=== PATIENT | female | born 1950 | race Caucasian/White ===

== ENCOUNTER 2018-04-22 08:54 | Inpatient (IN) ==
[2018-04-15 11:12] LABS: Appearance,Urine CLEAR; Bilirubin,Urine NEG (NEG); Color,Urine YELLOW; Glucose,Urine (UA) NEGATIVE (NEG); Leukocyte Esterase,Urine NEG /uL (NEG); Protein,Urine NEG (NEG); Specific Gravity,Urine 1.013 (1.000-1.035); Urine Blood NEG mg/dL (<0.03); Urobilinogen,Urine NEG (NEG)
[2018-04-15 12:20] LABS: Blood Urea Nitrogen 11 mg/dl (8-23)
[2018-04-15 12:27] LABS: Basophils # (Auto) 0 K/mcL (0.0-0.3); Basophils % (Auto) 0.3 % (0.0-2.0); Eosinophils # (Auto) 0.1 K/mcL (0.0-0.7); Eosinophils % (Auto) 2.5 % (0.0-7.0); Granulocytes % (Auto) 56.6 % (38.0-78.0); Lymphocytes # (Auto) 1.6 K/mcL (1.5-4.8); Mean Cell Volume 107.8 fL (80.0-100.0); Monocytes # (Auto) 0.4 K/mcL (0.1-0.9); Monocytes % (Auto) 8.6 % (1.0-12.0); Platelet Count 246 K/mcL (140-440); RBC 3.76 M/mcL (4.00-5.20); Red Cell Distribution Width 14.2 % (11.5-14.5)
[~2018-04-22 08:54] MED LIST: 0.9 % SODIUM CHLORIDE 250 ML IV SCH; ceFAZolin 1 GM VIAL IV SCH
[2018-04-22] MEDS ORDERED: DESMOPRESSIN ACETATE 20 MCG in 0.9 % SODIUM CHLORIDE 50 ML IV ONE (11:00)
[2018-04-22] MEDS ORDERED: ePHEDrine 50 MG/ML AMPUL IV ONE (13:10)
[2018-04-22] MEDS ORDERED: LIDOCAINE HCL/PF 100 MG/5 ML SYRINGE IV ONE (13:10)
[2018-04-22] MEDS ORDERED: ONDANSETRON 4 MG/2 ML VIAL IV ONE (13:10)
[2018-04-22] MEDS ORDERED: PROPOFOL 200 MG/20 ML VIAL IV ONE (13:10)
[2018-04-22] MEDS ORDERED: DEXAMETHASONE 10 MG/ML VIAL IV ONE (13:10)
[2018-04-22] MEDS ORDERED: MIDAZOLAM 5 MG/5 ML VIAL IV ONE (13:10)
[2018-04-22] MEDS ORDERED: fentaNYL 250 MCG/5 ML VIAL IV ONE (13:10)
[2018-04-22] MEDS ORDERED: GENTAMICIN SULFATE 800 MG/20 ML VIAL IR ONE (13:33)
[2018-04-22] MEDS ORDERED: PROMETHAZINE 25 MG/ML VIAL IV PRN (14:28)
[2018-04-22] MEDS ORDERED: FLUMAZENIL 0.1 MG/ML ML IV PRN (14:28)
[2018-04-22] MEDS ORDERED: ACETAMINOPHEN 1,000 MG/100 ML BOTTLE IV ONE (14:28)
[2018-04-22] MEDS ORDERED: BUPIVACAINE 0.5% 50 ML VIAL IJ ONE (14:28)
[2018-04-22] MEDS ORDERED: ONDANSETRON 4 MG/2 ML VIAL IV PRN ×2 (14:28→14:35)
[2018-04-22] MEDS ORDERED: HYDROmorphone 2 MG/ML VIAL IV PRN (14:28)
[2018-04-22] MEDS ORDERED: diphenhydrAMINE 50 MG/ML VIAL IV PRN (14:28)
[2018-04-22] MEDS ORDERED: NALOXONE HCL 0.4 MG/ML VIAL IV PRN (14:28)
[2018-04-22] MEDS ORDERED: MEPERIDINE 25 MG/ML SYRINGE IV PRN (14:28)
[2018-04-22] MEDS ORDERED: IPRATROPIUM/ALBUTEROL 3 ML AMPUL.NEB NEB PRN (14:28)
[2018-04-22] MEDS ORDERED: LACTATED RINGERS 250 ML IV PRN (14:28)
[2018-04-22] MEDS ORDERED: BENZOCAINE/MENTHOL 1 LOZENGE PO PRN ×2 (14:28→14:35)
[2018-04-22] MEDS ORDERED: LACTATED RINGERS 1,000 ML IV SCH (14:30)
[2018-04-22] MEDS ORDERED: MAGNESIUM HYDROXIDE 30 ML ORAL.SUSP PO PRN (14:35)
[2018-04-22] MEDS ORDERED: FLEETS ADULT ENEMA PR PRN (14:35)
[2018-04-22] MEDS ORDERED: BISACODYL 10 MG SUPP.RECT PR PRN (14:35)
[2018-04-22] MEDS ORDERED: TRANEXAMIC ACID 1,000 MG/10 ML VIAL IV SCH (14:35)
[2018-04-22] MEDS ORDERED: POLYETHYLENE GLYCOL 3350 17 GM PACKET PO PRN (14:35)
[2018-04-22] MEDS ORDERED: MECLIZINE 25 MG TABLET PO PRN (14:39)
[2018-04-22] MEDS ORDERED: HYDROcodone/APAP 5/325MG TABLET PO PRN (14:39)
--- NOTE | 2018-04-22 14:42 | Brief Operative Note ---
Date of procedure: 04/22/18 Pre-op diagnosis: loose tibial component, left TKR Post-op diagnosis: same Procedure: revision tibial component Grafts/Implants: Yes (SNN tibia with stem) Anesthesia: GETA Complications: none Complications Description: 04/22/18 14:42 as above Surgeon: Estiven Rebolledo Infrastructure Security Architect: Harpreet Benitez Estimated blood loss (cc): 250 Tourniquet Time (Minutes): 0 Specimens Removed/Pathology: other (left tibial bone) Condition: stable Disposition: PACU
[2018-04-22] MEDS: fentaNYL 100 MCG/2 ML VIAL IV PRN ×3 (15:18→15:41)
[2018-04-22] MEDS ORDERED: PSEUDOEPHEDRINE 30 MG TABLET PO PRN (15:32)
--- NOTE | 2018-04-22 16:07 | XRay Report ---
HISTORY: Postop left knee replacement FINDINGS: There is a well-positioned left total knee prosthesis. There are periarticular soft tissue calcifications in the soft tissue calcifications anterior to the distal shaft of the femur, above the head of the fibula and in the suprapatellar recess. These calcifications were not present on the prior x-ray done in 2013. No fracture seen. IMPRESSION: Well-positioned left knee prosthesis Interpreted and Authenticated by: Narayan Rich 04/22/18
[2018-04-22] MEDS: 0.9 % SODIUM CHLORIDE 1,000 ML IV SCH (16:08)
[2018-04-22] MEDS: HYDROcodone/APAP 10/325MG TABLET PO PRN ×3 (16:19→22:33)
[2018-04-22] MEDS: GABAPENTIN 300 MG CAPSULE PO SCH ×2 (16:19→20:54)
[2018-04-22] MEDS: ceFAZolin 1 GM VIAL IV SCH (20:49)
[2018-04-22] MEDS: SIMVASTATIN 20 MG TABLET PO SCH (20:50)
[2018-04-22] MEDS: LACTOBACILLUS 1 CAPSULE PO SCH (20:50)
[2018-04-22] MEDS: SENNOSIDES 1 TABLET PO SCH (20:51)
[2018-04-22] MEDS: APIXABAN 5 MG TABLET PO SCH (20:51)
[2018-04-22] MEDS: traZODone HCL 100 MG TABLET PO SCH (20:54)
[2018-04-22] MEDS: DULoxetine 30 MG CAPSULE PO SCH (20:54)
[2018-04-22] MEDS: DOCUSATE SODIUM 100 MG CAPSULE PO SCH (20:54)
[2018-04-22] MEDS ORDERED: FAMOTIDINE 20 MG TABLET PO PRN (21:00)
[2018-04-22] MEDS ORDERED: DOCUSATE SODIUM 100 MG CAPSULE PO SCH (21:00)
[2018-04-22] MEDS ORDERED: ASPIRIN 325 MG ENTERIC COATED TABLET PO SCH (21:00)
[2018-04-22] MEDS: MODAFINIL 200 MG TABLET PO SCH (21:05)
[2018-04-22] MEDS: 0.9 % SODIUM CHLORIDE 10 ML SYRINGE IV SCH (22:26)
[2018-04-23] MEDS: 0.9 % SODIUM CHLORIDE 1,000 ML IV SCH ×3 (02:14→21:56)
[2018-04-23] MEDS: HYDROcodone/APAP 10/325MG TABLET PO PRN ×5 (04:00→21:50)
[2018-04-23] MEDS: ceFAZolin 1 GM VIAL IV SCH (05:00)
[2018-04-23] MEDS: 0.9 % SODIUM CHLORIDE 10 ML SYRINGE IV SCH ×3 (06:38→22:00)
[2018-04-23 07:04] LABS: Basophils # (Auto) 0 K/mcL (0.0-0.3); Basophils % (Auto) 0.3 % (0.0-2.0); Eosinophils # (Auto) 0 K/mcL (0.0-0.7); Eosinophils % (Auto) 0.7 % (0.0-7.0); Granulocytes % (Auto) 63.9 % (38.0-78.0); Lymphocytes # (Auto) 1.6 K/mcL (1.5-4.8); Lymphocytes % (Auto) 27.6 % (15.5-49.0); Mean Cell Volume 107.1 fL (80.0-100.0); Mean Corpuscular HGB Conc 32.8 g/dL (31.0-36.0); Monocytes # (Auto) 0.4 K/mcL (0.1-0.9); Monocytes % (Auto) 7.5 % (1.0-12.0); Platelet Count 181 K/mcL (140-440); RBC 2.82 M/mcL (4.00-5.20); Red Cell Distribution Width 13.6 % (11.5-14.5)
[2018-04-23] MEDS: LACTOBACILLUS 1 CAPSULE PO SCH ×2 (08:22→21:49)
[2018-04-23] MEDS: FISH OIL 1,000 MG CAPSULE PO SCH (08:22)
[2018-04-23] MEDS: DULoxetine 30 MG CAPSULE PO SCH ×2 (08:23→22:00)
[2018-04-23] MEDS: APIXABAN 5 MG TABLET PO SCH ×2 (08:23→21:54)
[2018-04-23] MEDS: GABAPENTIN 300 MG CAPSULE PO SCH ×3 (08:24→21:52)
[2018-04-23] MEDS: DOCUSATE SODIUM 100 MG CAPSULE PO SCH ×2 (08:24→21:51)
[2018-04-23] MEDS: VITAMIN D3 1,000 UNIT TABLET PO SCH (08:24)
[2018-04-23] MEDS: MODAFINIL 200 MG TABLET PO SCH ×3 (08:40→21:53)
[2018-04-23] MEDS ORDERED: PNEUMOCOCCAL 23-VAL P-SAC VAC 0.5 ML SYRINGE IM ONE (10:00)
--- NOTE | 2018-04-23 10:02 | Orthopedic Progress Note ---
Subjective Patient information: Note initiated : 04/23/18 at 10:00 am Service Date, if different from initiated Date: [] Patient: Janee Orozco 67 y/o F admitted on 04/22/18 for Left Knee Revision of Tibial Component with Liner . Chief Complaint: [] Principal diagnosis: l knee revision Objective Vital signs: Vital Signs Temp Pulse Resp BP BP Pulse Ox 04/23/18 07:06 98.3 F 18 85/43 92 04/23/18 04:00 98.4 F 89 16 91/54 91 04/22/18 23:10 98.1 F 104 H 16 99/57 91 04/22/18 19:12 97.3 F 93 H 16 117/70 93 04/22/18 18:04 98 F 75 16 105/68 99 04/22/18 17:01 98 F 68 18 109/71 94 04/22/18 16:46 71 16 104/64 98 04/22/18 16:31 70 16 108/63 04/22/18 16:16 97.3 F 73 106/62 95 04/22/18 16:01 96.9 F L 71 18 109/68 04/22/18 15:52 97.2 F 73 19 102/85 95 04/22/18 15:40 96.3 F L 72 15 104/61 98 04/22/18 15:30 96.5 F L 77 14 107/85 96 04/22/18 15:20 97.3 F 81 13 99/54 100 04/22/18 15:10 80 13 122/70 97 04/22/18 15:05 79 11 L 107/58 93 04/22/18 15:02 97.3 F 80 19 109/58 97 04/22/18 12:00 97.9 F 88 18 126/77 95 Intake and Output 04/22/18 04/23/18 04/23/18 21:59 05:59 13:59 Intake Total 2395 / 3545 1150 / 3545 360 / 360 Output Total 500 / 500 Balance 1895 / 3045 1150 / 3045 360 / 360 Intake: IV 155 / 1155 1000 / 1155 Sodium Chloride 0.9% 1,000 ml @ 1000 / 1000 100 mls/hr IV .Q10H [facility] Rx#: [id number] Oral 240 / 390 150 / 390 360 / 360 IV - Manual Only 1999 Output: Void Amount 250 / 250 Estimated Blood Loss 250 / 250 Other: Meal Dinner Breakfast Percent of Meal Consumed 100% 100% Feeding Ability Independent Urine Appearance Clear Urine Color Dark Yellow Urine Odor Normal # Voids 1 Weight 201 lb 8 oz Intake & Output: Intake & Output 04/22/18 04/23/18 04/23/18 21:59 05:59 13:59 Intake Total 2395 / 3545 1150 / 3545 360 / 360 Output Total 500 / 500 Balance 1895 / 3045 1150 / 3045 360 / 360 Weight 201 lb 8 oz Intake: IV 155 / 1155 1000 / 1155 Sodium Chloride 0.9% 1,000 ml @ 1000 / 1000 100 mls/hr IV .Q10H [facility] Rx#: [id number] Oral 240 / 390 150 / 390 360 / 360 IV - Manual Only 1999 Output: Void Amount 250 / 250 Estimated Blood Loss 250 / 250 Other: Meal Dinner Breakfast Percent of Meal Consumed 100% 100% Feeding Ability Independent Urine Appearance Clear Urine Color Dark Yellow Urine Odor Normal # Voids 1 Incision clean and dry: Yes Neurological exam IM: Yes neurovascular intact - Labs CBC & BMP: 04/23/18 05:25 04/15/18 09:55 Labs: 04/23/18 04/15/18 05:25 09:55 Hgb 9.9 L 13.4 Hct 30.2 L 40.6 Assessment and Plan (1) Status post revision of total replacement of left knee no complications. continue PT low dose eliquis- hx of bleeding problwma ND [facility]IR[facility] [employer] Status: Acute
--- NOTE | 2018-04-23 10:32 | Surgical Pathology Report ---
HISTOLOGY SPECIMEN MICROSCOPIC DIAGNOSIS BONE, LEFT TIBIA, BIOPSY: -- BONE AND MARROW WITH CHRONIC INFLAMMATION, FIBROSIS AND HEMORRHAGE. -- NO NEUTROPHILIC INFLAMMATION IDENTIFIED. (DMT:adj) CLINICAL HISTORY Left knee pain of internal hardware. GROSS DESCRIPTION Received in formalin labeled left tibia biopsy, is a pink-wong piece of tissue measuring 1 x 0.6 x 0.3 cm. Entirely submitted - one cassette, following light decalcification. (SCB:sln) Electronically Signed by: Miguel Castillo M.D.
--- NOTE | 2018-04-23 12:47 | Operative Note ---
DATE OF OPERATION: 04/22/2018 PREOPERATIVE DIAGNOSIS: Painful left total knee replacement. POSTOPERATIVE DIAGNOSIS: Painful left total knee replacement. OPERATION: Revision of the left tibial component with liner exchange. SURGEON: Estiven Rebolledo M.D. JAVA SYSTEMS ANALYST: Harpreet Benitez PA-C. ANESTHESIA: General. TOURNIQUET TIME: No tourniquet was used. ESTIMATED BLOOD LOSS: 250 mL. SUMMARY OF PROCEDURE: General anesthesia was attained. The left leg was prepped and draped. The patient's previous incision was reopened. This was taken down to the quadriceps and medial retinaculum. These were split longitudinally. The patella required a lateral release to salas. The components were exposed. The patella looked undamaged and intact, and the femur did not feel loose. Preoperative bone scan was suggestive of a loose tibial component. There was no evidence of infection clinically or preoperatively. The tibial component was completely released using an osteotome and then removed. Underneath there was no purulence. There was mild loss of bone onto the prosthetic component. The bone surfaces were debrided of bone using appropriate curets and then thoroughly irrigated. A biopsy was taken. I then reamed the bone. We did a new proximal resection approximately 1 mm above the superior area of the bone. We then did trials with a revision baseplate and a 12 cm stem. We got an excellent combination of stability with full range of motion with a 15 mm insert. We thoroughly cleansed the tibia and then used the CarboJet to get final blood off the bone. The components were then cemented in using cement throughout the stem and proximally as well. The knee was kept in full extension during hardening and excess cement was removed. This was checked before and after cementation. The quadriceps and medial retinaculum were closed with interrupted buried 0 FiberWire. A second layer of running locking Maxon was also placed. The subcutaneous tissue was closed with interrupted buried 2-0 Monocryl, and the skin was closed with candy. A sterile compressive dressing was applied. Sponge and needle count was correct. The patient tolerated the procedure well and was taken to the recovery room in stable condition. TJF:jet Job ID: [id number] Doc ID: [id number] Estiven Rebolledo MD
[2018-04-23] MEDS: SENNOSIDES 1 TABLET PO SCH (21:49)
[2018-04-23] MEDS: SIMVASTATIN 20 MG TABLET PO SCH (21:52)
[2018-04-23] MEDS: traZODone HCL 100 MG TABLET PO SCH (21:55)
[2018-04-24] MEDS: 0.9 % SODIUM CHLORIDE 1,000 ML IV SCH ×2 (05:59→17:35)
[2018-04-24] MEDS: 0.9 % SODIUM CHLORIDE 10 ML SYRINGE IV SCH ×3 (05:59→20:24)
[2018-04-24] MEDS: APIXABAN 5 MG TABLET PO SCH ×2 (08:24→20:19)
[2018-04-24] MEDS: HYDROcodone/APAP 10/325MG TABLET PO PRN ×4 (08:25→20:17)
[2018-04-24] MEDS: FISH OIL 1,000 MG CAPSULE PO SCH (08:26)
[2018-04-24] MEDS: LACTOBACILLUS 1 CAPSULE PO SCH ×2 (08:26→20:18)
[2018-04-24] MEDS: GABAPENTIN 300 MG CAPSULE PO SCH ×3 (08:26→20:19)
[2018-04-24] MEDS: DULoxetine 30 MG CAPSULE PO SCH ×2 (08:26→20:19)
[2018-04-24] MEDS: VITAMIN D3 1,000 UNIT TABLET PO SCH (08:26)
[2018-04-24] MEDS: DOCUSATE SODIUM 100 MG CAPSULE PO SCH ×2 (08:26→20:19)
[2018-04-24] MEDS: MODAFINIL 200 MG TABLET PO SCH ×2 (08:26→20:23)
--- NOTE | 2018-04-24 08:55 | Orthopedic Progress Note ---
Subjective Patient information: Note initiated : 04/24/18 at 8:54 am Service Date, if different from initiated Date: [] Patient: Janee Orozco 67 y/o F admitted on 04/22/18 for Left Knee Revision of Tibial Component with Liner . Chief Complaint: [] Principal diagnosis: l knee revision Interval history: doing better but slow to mobilize Objective Vital signs: Vital Signs Temp Pulse Pulse Resp BP Pulse Ox 04/24/18 07:17 98.3 F 98 H 14 109/71 92 04/24/18 05:44 98.5 F 98 H 18 95/61 93 04/23/18 23:10 99.8 F H 98 H 12 110/57 95 04/23/18 18:42 99.7 F H 102 H 16 107/59 91 04/23/18 15:20 98.1 F 20 94/54 92 04/23/18 11:07 97.8 F 18 97/59 93 Intake and Output 04/23/18 04/24/18 04/24/18 21:59 05:59 13:59 Intake Total 540 / 2540 400 / 2540 Output Total 250 / 250 Balance 290 / 2290 400 / 2290 Intake: Oral 540 / 1540 400 / 1540 Output: Void Amount 250 / 250 Other: Meal Dinner Percent of Meal Consumed 100% Feeding Ability Independent Urine Appearance Clear Urine Color Bright Yellow Urine Odor Normal # Voids 1 Weight 203 lb Intake & Output: Intake & Output 04/23/18 04/24/18 04/24/18 21:59 05:59 13:59 Intake Total 540 / 2540 400 / 2540 Output Total 250 / 250 Balance 290 / 2290 400 / 2290 Weight 203 lb Intake: Oral 540 / 1540 400 / 1540 Output: Void Amount 250 / 250 Other: Meal Dinner Percent of Meal Consumed 100% Feeding Ability Independent Urine Appearance Clear Urine Color Bright Yellow Urine Odor Normal # Voids 1 Incision: Yes healing Incision clean and dry: Yes Dressing: Yes clean, Yes dry, Yes intact Weight bearing status: full Neurological exam IM: Yes alert, Yes oriented X3, Yes motor sensory intact Extremities exam IM: No calf tenderness, Yes Foot pink and warm, Yes neurovascular intact - Labs CBC & BMP: 04/23/18 05:25 04/15/18 09:55 Labs: 04/23/18 04/15/18 05:25 09:55 Hgb 9.9 L 13.4 Hct 30.2 L 40.6 Assessment and Plan (1) Status post revision of total replacement of left knee s.p revision tka wbat pain control dvt prophylaxis home vs rehab thu or thursday Status: Acute
[2018-04-24] MEDS: SIMVASTATIN 20 MG TABLET PO SCH (20:19)
[2018-04-24] MEDS: traZODone HCL 100 MG TABLET PO SCH (20:19)
[2018-04-24] MEDS: SENNOSIDES 1 TABLET PO SCH (20:19)
[2018-04-25] MEDS: 0.9 % SODIUM CHLORIDE 1,000 ML IV SCH (06:42)
[2018-04-25] MEDS: 0.9 % SODIUM CHLORIDE 10 ML SYRINGE IV SCH (06:43)
[2018-04-25] MEDS: DULoxetine 30 MG CAPSULE PO SCH (08:21)
[2018-04-25] MEDS: MODAFINIL 200 MG TABLET PO SCH (08:21)
[2018-04-25] MEDS: FISH OIL 1,000 MG CAPSULE PO SCH (08:21)
[2018-04-25] MEDS: LACTOBACILLUS 1 CAPSULE PO SCH (08:21)
[2018-04-25] MEDS: HYDROcodone/APAP 10/325MG TABLET PO PRN ×2 (08:21→11:57)
[2018-04-25] MEDS: GABAPENTIN 300 MG CAPSULE PO SCH (08:21)
[2018-04-25] MEDS: DOCUSATE SODIUM 100 MG CAPSULE PO SCH (08:22)
[2018-04-25] MEDS: APIXABAN 5 MG TABLET PO SCH (08:22)
[2018-04-25] MEDS: VITAMIN D3 1,000 UNIT TABLET PO SCH (08:22)
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
== END 2018-04-25 12:24 | disposition home or self-care (01) | DRG 467 ==
LOC: MEDSUR 08:54
PROVIDERS: ADMIT Orthopaedic Surgery Foot and Ankle Surgery; ATTEND Orthopaedic Surgery Foot and Ankle Surgery

== ENCOUNTER 2019-02-17 06:54 | Inpatient (IN) ==
[2019-02-09 20:30] LABS: Prothrombin Time 13.2 sec (11.9-14.5)
[2019-02-09 20:40] LABS: Basophils # (Auto) 0 K/mcL (0.0-0.3); Basophils % (Auto) 0.3 % (0.0-2.0); Eosinophils # (Auto) 0.1 K/mcL (0.0-0.7); Eosinophils % (Auto) 1.9 % (0.0-7.0); Granulocytes % (Auto) 66.9 % (38.0-78.0); Hematocrit 39.2 % (36.0-48.0); Hemoglobin 12.7 g/dL (12.0-15.0); Lymphocytes # (Auto) 1.1 K/mcL (1.5-4.8); Lymphocytes % (Auto) 23.4 % (15.5-49.0); Mean Cell Volume 109.1 fL (80.0-100.0); Mean Corpuscular HGB Conc 32.4 g/dL (31.0-36.0); Monocytes # (Auto) 0.3 K/mcL (0.1-0.9); Monocytes % (Auto) 7.5 % (1.0-12.0); Platelet Count 235 K/mcL (140-440); RBC 3.59 M/mcL (4.00-5.20); Red Cell Distribution Width 14.3 % (11.5-14.5); WBC 4.5 K/mcL (4.5-11.0)
[2019-02-09 20:43] LABS: Blood Urea Nitrogen 17 mg/dl (8-23); Calcium 9.3 mg/dl (8.6-10.4); Carbon Dioxide 29 mmol/L (22-30); Chloride 98 mmol/L (96-108); Glomerular Filtration Rate 76; Glucose 112 mg/dL (70-105)
[~2019-02-17 06:54] MED LIST changes: -0.9 % SODIUM CHLORIDE 250 ML IV SCH; +0.9 % SODIUM CHLORIDE 9 ML, KETOROLAC 30 MG, ROPIVACAINE HCL/PF 49.5 ML, EPINEPHrine 0.... IJ SCH; +IPRATROPIUM/ALBUTEROL 3 ML AMPUL.NEB NEB PRN; +SCOPOLAMINE 1 PATCH PATCH TOPICAL PRN; -ceFAZolin 1 GM VIAL IV SCH; +ceFAZolin 2 GM in DEXTROSE 5% IN WATER 50 ML IV SCH
[2019-02-17 10:13] LABS: Appearance,Urine CLEAR; Bacteria,Urine 0 /hpf (0); Bilirubin,Urine NEG (NEG); Color,Urine YELLOW; Culture Indicated,Urine YES; Glucose,Urine (UA) NEGATIVE (NEG); Ketones,Urine 5/TR mg/dL (NEG); Leukocyte Esterase,Urine 75 /uL (NEG); Mucus,Urine FEW /hpf (0); Nitrate,Urine NEG (NEG); Protein,Urine 30 mg/dL (NEG); Specific Gravity,Urine 1.026 (1.000-1.035); Urine Blood NEG mg/dL (<0.03); Urine Hyaline Cast 34 /lpf (0-2); Urine RBC 5 /hpf (0-1); Urine Squamous Epithelial Cell < 1 /hpf (0-4); Urine Transitional Epi Cells 1 /hpf (0-2); Urine WBC 53 /hpf (0-4); Urobilinogen,Urine NEG (NEG)
[2019-02-17] MEDS ORDERED: ePHEDrine 50 MG/ML AMPUL IV ONE (12:05)
[2019-02-17] MEDS ORDERED: ROPIVACAINE HCL/PF 20 ML VIAL IJ ONE (12:05)
[2019-02-17] MEDS ORDERED: DEXAMETHASONE 10 MG/ML VIAL IV ONE (12:05)
[2019-02-17] MEDS ORDERED: ONDANSETRON 4 MG/2 ML VIAL IV ONE (12:05)
[2019-02-17] MEDS ORDERED: TRANEXAMIC ACID 1,000 MG/10 ML VIAL IV ONE ×2 (12:05→13:51)
[2019-02-17] MEDS ORDERED: GLYCOPYRROLATE 0.2 MG/ML VIAL IV ONE (12:05)
[2019-02-17] MEDS ORDERED: KETAMINE 100 MG/ML ML IV ONE (12:05)
[2019-02-17] MEDS ORDERED: PROPOFOL 200 MG/20 ML VIAL IV ONE (12:05)
[2019-02-17] MEDS ORDERED: MIDAZOLAM 5 MG/5 ML VIAL IV ONE (12:05)
[2019-02-17] MEDS ORDERED: LIDOCAINE HCL/PF 100 MG/5 ML SYRINGE IV ONE (12:05)
[2019-02-17] MEDS ORDERED: ESMOLOL 100 MG/10 ML VIAL IV ONE (12:05)
[2019-02-17] MEDS ORDERED: fentaNYL 250 MCG/5 ML VIAL IV ONE (12:05)
[2019-02-17] MEDS ORDERED: GENTAMICIN SULFATE 800 MG/20 ML VIAL IR ONE (12:37)
[2019-02-17] MEDS ORDERED: fentaNYL 100 MCG/2 ML VIAL IV PRN (13:28)
[2019-02-17] MEDS ORDERED: HYDROmorphone 2 MG/ML VIAL IV PRN (13:28)
[2019-02-17] MEDS ORDERED: ATROPINE SULFATE 0.4 MG/ML VIAL IV PRN (13:28)
[2019-02-17] MEDS ORDERED: PROMETHAZINE 25 MG/ML VIAL IV PRN (13:28)
[2019-02-17] MEDS ORDERED: MEPERIDINE 25 MG/ML SYRINGE IV PRN (13:28)
[2019-02-17] MEDS ORDERED: ePHEDrine 50 MG/ML AMPUL IV PRN (13:28)
[2019-02-17] MEDS ORDERED: NALOXONE HCL 0.4 MG/ML VIAL IV PRN (13:28)
[2019-02-17] MEDS ORDERED: diphenhydrAMINE 50 MG/ML VIAL IV PRN (13:28)
[2019-02-17] MEDS ORDERED: METHOCARBAMOL 1,000 MG/10 ML VIAL IV PRN (13:28)
[2019-02-17] MEDS ORDERED: FLUMAZENIL 0.1 MG/ML ML IV PRN (13:28)
[2019-02-17] MEDS ORDERED: ONDANSETRON 4 MG/2 ML VIAL IV PRN ×2 (13:28→13:51)
[2019-02-17] MEDS ORDERED: ACETAMINOPHEN 1,000 MG/100 ML BOTTLE IV ONE (13:28)
[2019-02-17] MEDS ORDERED: IPRATROPIUM/ALBUTEROL 3 ML AMPUL.NEB NEB PRN (13:28)
[2019-02-17] MEDS ORDERED: LACTATED RINGERS 1,000 ML IV SCH (13:30)
[2019-02-17] MEDS ORDERED: MAGNESIUM HYDROXIDE 30 ML ORAL.SUSP PO PRN (13:51)
[2019-02-17] MEDS ORDERED: BENZOCAINE/MENTHOL 1 LOZENGE PO PRN (13:51)
[2019-02-17] MEDS ORDERED: POLYETHYLENE GLYCOL 3350 17 GM PACKET PO PRN (13:51)
[2019-02-17] MEDS ORDERED: BISACODYL 10 MG SUPP.RECT PR PRN (13:51)
[2019-02-17] MEDS ORDERED: FAMOTIDINE 20 MG TABLET PO PRN (13:55)
[2019-02-17] MEDS ORDERED: PSEUDOEPHEDRINE HCL PO PRN (13:55)
[2019-02-17] MEDS ORDERED: BUTALBITAL PO PRN (13:55)
[2019-02-17] MEDS ORDERED: CAFFEIN PO PRN (13:55)
[2019-02-17] MEDS ORDERED: CODEINE PO PRN (13:55)
[2019-02-17] MEDS ORDERED: MECLIZINE 25 MG TABLET PO PRN (13:55)
[2019-02-17] MEDS ORDERED: tiZANidine 4 MG TABLET PO PRN (13:55)
[2019-02-17] MEDS ORDERED: ASA PO PRN (13:55)
--- NOTE | 2019-02-17 14:00 | Brief Operative Note ---
Date of procedure: 02/17/19 Pre-op diagnosis: djd right knee Post-op diagnosis: same Procedure: r TKR Grafts/Implants: Yes (Triathlon knee- 4 femur, 4 tibia, 9 mm insert, 32 mm patella) Anesthesia: GETA Complications: none Surgeon: Estiven Rebolledo Payroll Assistant: Harpreet Benitez Estimated blood loss (cc): 100 Tourniquet Time (Minutes): 67 Specimens Removed/Pathology: none sent Condition: stable Disposition: PACU
--- NOTE | 2019-02-17 15:09 | XRay Report ---
CLINICAL INFORMATION: Status post right knee replacement TECHNIQUE: AP, lateral, patellar views of the right knee COMPARISON: None. FINDINGS: Status post right total knee arthroplasty. Femoral and tibial components are in anatomic positions. There is postsurgical soft tissue and intra-articular gas IMPRESSION: Status post right total knee replacement Interpreted and Authenticated by: Marco Doherty 02/17/19
[2019-02-17] MEDS: 0.9 % SODIUM CHLORIDE 1,000 ML IV SCH (15:59)
[2019-02-17] MEDS: 0.9 % SODIUM CHLORIDE 10 ML SYRINGE IV SCH ×2 (17:13→20:09)
[2019-02-17] MEDS: GABAPENTIN 300 MG CAPSULE PO SCH ×2 (17:33→20:07)
[2019-02-17] MEDS: HYDROcodone/APAP 10/325MG TABLET PO PRN ×2 (17:41→22:45)
[2019-02-17] MEDS: ceFAZolin 1 GM VIAL IV SCH (18:34)
[2019-02-17] MEDS: DOCUSATE SODIUM 100 MG CAPSULE PO SCH ×2 (20:00→20:08)
[2019-02-17] MEDS: DULoxetine 30 MG CAPSULE PO SCH (20:07)
[2019-02-17] MEDS: SIMVASTATIN 20 MG TABLET PO SCH (20:07)
[2019-02-17] MEDS: APIXABAN 5 MG TABLET PO SCH (20:07)
[2019-02-17] MEDS: traZODone HCL 50 MG TABLET PO SCH (20:08)
[2019-02-17] MEDS: SENNOSIDES 1 TABLET PO SCH (20:08)
[2019-02-17] MEDS: MODAFINIL 200 MG TABLET PO SCH (20:09)
[2019-02-17] MEDS: DIAZEPAM 10 MG TABLET PO PRN (20:17)
[2019-02-18] MEDS: HYDROcodone/APAP 10/325MG TABLET PO PRN ×4 (02:34→19:05)
[2019-02-18] MEDS: ceFAZolin 1 GM VIAL IV SCH (03:01)
[2019-02-18] MEDS: 0.9 % SODIUM CHLORIDE 1,000 ML IV SCH ×2 (05:20→17:33)
[2019-02-18] MEDS: 0.9 % SODIUM CHLORIDE 10 ML SYRINGE IV SCH ×3 (05:25→22:14)
[2019-02-18 05:31] LABS: Hematocrit 30.7 % (36.0-48.0)
--- NOTE | 2019-02-18 07:24 | Orthopedic Progress Note ---
Subjective Patient information: Note initiated : 02/18/19 at 7:21 am Service Date, if different from initiated Date: [] Patient: Janee Orozco 68 y/o F admitted on 02/17/19 for Right Total Knee Arthroplasty Osmar. Chief Complaint: [] Principal diagnosis: s/p right total knee arthoplasty Interval history: Patient is doing well today. Her pain is tolerated. She has participated in PT, Denies any SOB, BRAUN, Nausea, Vomiting, or any other acute symptoms. Objective Vital signs: Vital Signs Temp Pulse Resp BP BP Pulse Ox 02/18/19 03:09 97.7 F 93 H 20 107/66 94 02/18/19 00:00 98.8 F 83 20 108/71 92 02/17/19 20:00 97.6 F 112 H 18 130/74 95 02/17/19 19:45 95 02/17/19 16:28 110 H 137/83 95 02/17/19 15:57 103 H 135/88 95 02/17/19 15:43 105 H 140/84 96 02/17/19 15:27 110 H 151/92 93 02/17/19 15:13 109 H 138/84 95 02/17/19 14:57 110 H 128/76 95 02/17/19 14:45 97.9 F 114 H 18 146/79 93 02/17/19 14:30 98.2 F 111 H 13 124/81 93 02/17/19 14:25 114 H 14 134/75 96 02/17/19 14:20 118 H 20 135/80 98 02/17/19 14:15 116 H 21 130/91 95 02/17/19 14:11 97.6 F 100 H 18 145/71 100 Intake and Output 02/17/19 02/18/19 02/18/19 21:59 05:59 13:59 Intake Total 2140 1570 Output Total 100 200 Balance 2040 1370 Intake: IV 100 1000 Sodium Chloride 0.9% 1,000 ml @ 1000 75 mls/hr IV .[id number] [facility] Rx#: [id number] Oral 240 570 IV - Manual Only 1800 Output: Void Amount 50 200 Estimated Blood Loss 50 Other: Meal Dinner Percent of Meal Consumed 90 Urine Appearance Clear Clear Urine Color Dark Yellow Dark Yellow Weight 183 lb Intake & Output: Intake & Output 02/17/19 02/18/19 02/18/19 21:59 05:59 13:59 Intake Total 2140 1570 Output Total 100 200 Balance 2039 1370 Weight 183 lb Intake: IV 100 1000 Sodium Chloride 0.9% 1,000 ml @ 1000 75 mls/hr IV .[id number] [facility] Rx#: [id number] Oral 240 570 IV - Manual Only 1800 Output: Void Amount 50 200 Estimated Blood Loss 50 Other: Meal Dinner Percent of Meal Consumed 90 Urine Appearance Clear Clear Urine Color Dark Yellow Dark Yellow Incision: Yes healing Dressing: Yes clean, Yes dry, Yes intact Weight bearing status: full Neurological exam IM: Yes neurovascular intact Extremities exam IM: No calf tenderness, Yes normal inspection, Yes Foot pink and warm, Yes neurovascular intact - Labs CBC & BMP: 02/18/19 04:20 02/09/19 14:59 Labs: Orthopedic Labs 02/09/19 14:59 PT 13.2 INR 1.0 02/18/19 02/09/19 04:20 14:59 Hgb 10.0 L 12.7 Hct 30.7 L 39.2 Assessment and Plan (1) Status post total right knee replacement 1. Continue PT 2. Begin to taper IV pain meds 3. Plan for discharge to SNF Status: Acute
--- NOTE | 2019-02-18 08:06 | Operative Note ---
DATE OF OPERATION: 02/17/2019 PREOPERATIVE DIAGNOSIS: Right knee arthritis. POSTOPERATIVE DIAGNOSIS: Right knee arthritis. OPERATION: Right Osmar knee replacement. SURGEON: Estiven Rebolledo MD INTERACTIVE GRAPHIC DESIGNER: Harpreet Benitez PA-C. This provider's expertise and technical skill were required throughout the case. The PA assisted with preoperative coordination, intraoperative retraction, wound closure, dressing and splint application, as well as postoperative documentation and care coordination. ANESTHESIA: General done by Kelly Ratliff CRNA. TOURNIQUET TIME: 67 minutes. ESTIMATED BLOOD LOSS: 100 mL SUMMARY OF PROCEDURE: General anesthesia was attained. The right leg was prepped and draped. A thigh-level tourniquet was put up. Two stab incisions were made in the femur and two in the tibia. The pins were placed for the arrays for the Osmar system. The arrays were then placed and screwed in. A midline incision was made from the quadriceps to the tibial tubercle. This was taken down sharply to the VMO and the medial retinaculum. A mid vastus approach was used. The vastus medialis was split for about an inch as was the quadriceps and then the medial retinaculum split throughout. The exposure was completed by releasing and resecting the meniscus and the ACL. The medial and lateral malleoli were located for the Osmar system. The hip center was located by counter clockwise motion of the leg. Flexion, extension balancing was then accomplished to give equal flexion and extension gaps. No releases were needed. Forty anatomic landmarks were located on the femur and then 40 on the tibia using the registration of the Osmar. The bone cuts were then made using the robotic arm. The bone was then removed. The external rotation of the size 4 tibial tray was then adjusted using the Osmar system. The tibial trial was then used to broach and ream the tibia. Trials were then done of a 4 tibia, a 4 femur with a 9 mm insert and we got excellent motion and stability throughout the range of motion medially and laterally. The patella was everted. A measured resection was done bringing the patellar height down from 23 to 14 mm. The patella sized to a 32. This was a 10 mm correction. The bone surfaces were irrigated throughout. The knee was injected with multimodal injection per protocol. After irrigation and drying the bone surfaces the components were cemented in. The cement was cured with the knee at full extension. Excess cement was removed. The tourniquet was let down. All bleeding points were coagulated. The closure was then done with two running sutures of Stratafix, one proximal and one distal. The subcutaneous tissue was closed with interrupted buried 2-0 Monocryl. The skin was closed with Dermabond. A sterile compressive dressing was applied. The sponge and needle count was correct. The patient tolerated the procedure well and was taken to the recovery room in stable condition. TJF:malena Job ID: [id number] Doc ID: [id number] Estiven Rebolledo MD
[2019-02-18] MEDS: GABAPENTIN 300 MG CAPSULE PO SCH ×3 (08:48→21:43)
[2019-02-18] MEDS: APIXABAN 5 MG TABLET PO SCH ×2 (08:48→21:42)
[2019-02-18] MEDS: SULFAMETHOXAZOLE/TRIMETHOPRIM 1 TABLET PO SCH ×2 (08:48→21:42)
[2019-02-18] MEDS: DULoxetine 30 MG CAPSULE PO SCH ×2 (08:49→21:42)
[2019-02-18] MEDS: DOCUSATE SODIUM 100 MG CAPSULE PO SCH ×4 (08:50→22:14)
[2019-02-18] MEDS: VITAMIN D3 1,000 UNIT TABLET PO SCH (08:50)
[2019-02-18] MEDS: MODAFINIL 200 MG TABLET PO SCH ×2 (08:57→22:14)
[2019-02-18] MEDS: DIAZEPAM 10 MG TABLET PO PRN (08:57)
[2019-02-18] MEDS: FISH OIL 1,000 MG CAPSULE PO SCH (08:58)
[2019-02-18] MEDS: CYANOCOBALAMIN (VITAMIN B-12) 500 MCG TABLET PO SCH (08:59)
[2019-02-18] MEDS ORDERED: FLU VACC QS2019-20(6MOS UP)/PF 60 MCG/0.5 ML SYRINGE IM ONE (10:00)
[2019-02-18] MEDS: SENNOSIDES 1 TABLET PO SCH (21:42)
[2019-02-18] MEDS: traZODone HCL 50 MG TABLET PO SCH (21:43)
[2019-02-18] MEDS: SIMVASTATIN 20 MG TABLET PO SCH (21:43)
[2019-02-19] MEDS: 0.9 % SODIUM CHLORIDE 10 ML SYRINGE IV SCH ×3 (05:07→21:23)
[2019-02-19 06:28] LABS: Hemoglobin 9.7 g/dL (12.0-15.0)
[2019-02-19] MEDS: DOCUSATE SODIUM 100 MG CAPSULE PO SCH ×4 (08:23→21:31)
[2019-02-19] MEDS: MODAFINIL 200 MG TABLET PO SCH ×2 (08:23→21:23)
[2019-02-19] MEDS: FISH OIL 1,000 MG CAPSULE PO SCH (08:23)
[2019-02-19] MEDS: SULFAMETHOXAZOLE/TRIMETHOPRIM 1 TABLET PO SCH ×2 (08:23→21:22)
[2019-02-19] MEDS: DULoxetine 30 MG CAPSULE PO SCH ×2 (08:24→21:23)
[2019-02-19] MEDS: VITAMIN D3 1,000 UNIT TABLET PO SCH (08:24)
[2019-02-19] MEDS: APIXABAN 5 MG TABLET PO SCH ×2 (08:24→21:23)
[2019-02-19] MEDS: GABAPENTIN 300 MG CAPSULE PO SCH ×3 (08:24→21:23)
--- NOTE | 2019-02-19 08:24 | Orthopedic Progress Note ---
Subjective Patient information: Note initiated : 02/19/19 at 8:23 am Service Date, if different from initiated Date: [] Patient: Janee Orozco 68 y/o F admitted on 02/17/19 for Right Total Knee Arthroplasty Osmar. Chief Complaint: [] Principal diagnosis: s/p right total knee arthoplasty Objective Vital signs: Vital Signs Temp Pulse Resp BP Pulse Ox 02/19/19 07:25 99.8 F H 90 20 103/59 92 02/18/19 23:25 98.3 F 106 H 14 109/62 90 02/18/19 18:43 98.8 F 102 H 14 111/66 96 02/18/19 18:25 95 02/18/19 16:00 100.3 F H 102 H 22 168/67 90 02/18/19 11:54 99.3 F H 20 107/60 92 Intake and Output 02/18/19 02/19/19 02/19/19 21:59 05:59 13:59 Intake Total 240 Output Total 100 201 Balance 140 -201 Intake: Oral 240 Output: Void Amount 100 200 # of times incontinent of urine 1 Other: Meal Lunch Percent of Meal Consumed 100% Feeding Ability Independent Urine Appearance Clear Urine Color Bright Yellow Urine Odor Normal # Voids 1 Weight 185 lb Intake & Output: Intake & Output 02/18/19 02/19/19 02/19/19 21:59 05:59 13:59 Intake Total 240 Output Total 100 201 Balance 140 -201 Weight 185 lb Intake: Oral 240 Output: Void Amount 100 200 # of times incontinent of urine 1 Other: Meal Lunch Percent of Meal Consumed 100% Feeding Ability Independent Urine Appearance Clear Urine Color Bright Yellow Urine Odor Normal # Voids 1 Incision: Yes healing, Yes clean and dry Incision clean and dry: Yes Dressing: Yes clean Weight bearing status: full Neurological exam IM: Yes neurovascular intact Extremities exam IM: Yes Foot pink and warm - Diagnostic Results Knee x-ray: image reviewed (well positioned TKR, no complications) - Labs CBC & BMP: 02/19/19 04:31 02/09/19 14:59 Labs: Orthopedic Labs 02/09/19 14:59 PT 13.2 INR 1.0 02/19/19 02/18/19 02/09/19 04:31 04:20 14:59 Hgb 9.7 L 10.0 L 12.7 Hct 30.0 L 30.7 L 39.2
[2019-02-19] MEDS: CYANOCOBALAMIN (VITAMIN B-12) 500 MCG TABLET PO SCH (08:25)
[2019-02-19] MEDS: HYDROCODONE/APAP 7.5/325MG TABLET PO PRN ×4 (08:46→21:31)
[2019-02-19] MEDS: 0.9 % SODIUM CHLORIDE 1,000 ML IV SCH (09:35)
[2019-02-19] MEDS: traZODone HCL 50 MG TABLET PO SCH (21:23)
[2019-02-19] MEDS: SENNOSIDES 1 TABLET PO SCH (21:23)
[2019-02-19] MEDS: SIMVASTATIN 20 MG TABLET PO SCH (21:23)
[2019-02-20] MEDS: HYDROCODONE/APAP 7.5/325MG TABLET PO PRN ×2 (03:21→08:08)
[2019-02-20] MEDS: 0.9 % SODIUM CHLORIDE 10 ML SYRINGE IV SCH (06:04)
--- NOTE | 2019-02-20 07:13 | Orthopedic Progress Note ---
Subjective Patient information: Note initiated : 02/20/19 at 7:10 am Service Date, if different from initiated Date: [] Patient: Janee Orozco 68 y/o F admitted on 02/17/19 for Right Total Knee Arthroplasty Osmar. Chief Complaint: [S/p right TKA] Patient is doing well and has no particular complaints today. She denies any SOA, chest pain, or calf tenderness. Principal diagnosis: s/p right total knee arthoplasty Objective Vital signs: Vital Signs Temp Pulse Resp BP Pulse Ox 02/20/19 04:00 98.2 F 84 16 99/63 90 02/20/19 00:00 97.9 F 89 18 127/70 90 02/19/19 20:00 98.1 F 98 H 18 102/71 91 02/19/19 19:25 93 02/19/19 15:16 98.6 F 85 18 101/67 93 02/19/19 12:30 99 F 101 H 18 113/70 92 Intake and Output 02/19/19 02/20/19 02/20/19 22:59 05:59 13:59 Intake Total Output Total Balance Intake: Oral Output: Void Amount Other: Meal Percent of Meal Consumed Feeding Ability Urine Appearance Urine Color Weight Intake & Output: Intake & Output 02/19/19 02/20/19 02/20/19 22:59 05:59 13:59 Intake Total Output Total Balance Weight Intake: Oral Output: Void Amount Other: Meal Percent of Meal Consumed Feeding Ability Urine Appearance Urine Color Incision: Yes healing, Yes clean and dry Incision clean and dry: Yes Dressing: Yes clean, Yes dry, Yes intact Weight bearing status: full Neurological exam IM: Yes alert, Yes oriented X3, Yes motor sensory intact, Yes neurovascular intact Extremities exam IM: Yes calf tenderness (negative bilaterally), Yes Cra's sign (negative), Yes Foot pink and warm, Yes neurovascular intact - Labs CBC & BMP: 02/19/19 04:31 02/09/19 14:59 Labs: Orthopedic Labs 02/09/19 14:59 PT 13.2 INR 1.0 02/19/19 02/18/19 02/09/19 04:31 04:20 14:59 Hgb 9.7 L 10.0 L 12.7 Hct 30.0 L 30.7 L 39.2 Assessment and Plan (1) Status post total right knee replacement Discharge to SNF today. Verbal discharge instructions provided. Status: Acute
[2019-02-20] MEDS: VITAMIN D3 1,000 UNIT TABLET PO SCH (08:08)
[2019-02-20] MEDS: APIXABAN 5 MG TABLET PO SCH (08:08)
[2019-02-20] MEDS: CYANOCOBALAMIN (VITAMIN B-12) 500 MCG TABLET PO SCH (08:08)
[2019-02-20] MEDS: MODAFINIL 200 MG TABLET PO SCH (08:08)
[2019-02-20] MEDS: FISH OIL 1,000 MG CAPSULE PO SCH (08:08)
[2019-02-20] MEDS: GABAPENTIN 300 MG CAPSULE PO SCH (08:08)
[2019-02-20] MEDS: DOCUSATE SODIUM 100 MG CAPSULE PO SCH ×2 (08:09)
[2019-02-20] MEDS: SULFAMETHOXAZOLE/TRIMETHOPRIM 1 TABLET PO SCH (08:09)
[2019-02-20] MEDS: DULoxetine 30 MG CAPSULE PO SCH (08:10)
--- NOTE | 2019-03-10 07:43 | Discharge Summary ---
DATE OF ADMISSION: 02/17/2019 DATE OF DISCHARGE: 02/20/2019 PREOPERATIVE DIAGNOSIS: Right knee arthritis. POSTOPERATIVE DIAGNOSIS: Right knee arthritis. PROCEDURE: Right total knee arthroplasty with Osmar robot. HOSPITAL COURSE: The patient was admitted after surgery for physical therapy and pain control. She stayed for a total of 3 days and was discharged to a fdc facility. MEDICATIONS: The patient will be discharged on hydrocodone for pain and aspirin for DVT prophylaxis for 2 weeks. FOLLOWUP: [facility] in 2 weeks. KT:jet Job ID: [id number] Doc ID: [id number] Harpreet Benitez PA-C
== END 2019-02-20 10:05 | DRG 470 ==
LOC: MEDSUR 06:54
PROVIDERS: ADMIT Orthopaedic Surgery Foot and Ankle Surgery; ATTEND Orthopaedic Surgery Foot and Ankle Surgery

== ENCOUNTER 2019-06-14 21:31 | Inpatient (IN) ==
[2019-06-14] MEDS ORDERED: IOPAMIDOL 100 ML BOTTLE IV ONE (21:32)
[2019-06-14] MEDS ORDERED: LACTATED RINGERS 1,000 ML IV ONE (22:02)
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
[2019-06-14 22:05] LABS: POC Blood Urea Nitrogen 17 mg/dl (8-23); POC CO2 33 mmol/L (22-30); POC Calcium, Ionized 1.12 mmol/L (1.16-1.32); POC Chloride 99 mmol/L (96-108); POC Creatinine 0.8 mg/dl (0.6-1.1); POC Glucose, Random 129 mg/dL (70-105); POC Potassium 4.2 mmol/L (3.3-5.1); POC Sodium 139 mmol/L (133-145)
[2019-06-14 22:33] LABS: Hematocrit 32.3 % (34.1-44.9); Hemoglobin 10.1 g/dL (11.2-15.7); Mean Cell Volume 109.1 fL (80.0-100.0); Mean Corpuscular HGB Conc 31.3 g/dL (31.0-36.0); Mean Platelet Volume 8.3 fL (7.4-10.4); Platelet Count 172 K/mcL (140-440); RBC 2.96 M/mcL (3.59-5.38); Red Cell Distribution Width 14.4 % (11.5-14.5)
[2019-06-14 22:47] LABS: Alcohol, Blood < 10.0 mg/dL (<10); Alcohol,Blood < 0.010 gm/dl (<0.010)
[2019-06-14] MEDS ORDERED: 0.9 % SODIUM CHLORIDE 1,000 ML IV ONE (22:51)
[2019-06-14 22:53] LABS: ALT/SGPT 10 U/l (0-40); AST/SGOT 17 U/l (0-37); Albumin 3.5 gm/dL (3.2-5.2); Albumin/Globulin Ratio 1.5 (1.0-2.3); Alkaline Phosphatase 76 U/L (39-117); Bilirubin,Total 0.2 mg/dL (0.0-1.0); Blood Urea Nitrogen 16 mg/dl (8-23); Calcium 8.8 mg/dl (8.6-10.4); Carbon Dioxide 30 mmol/L (22-30); Chloride 101 mmol/L (96-108); Globulin 2.3 gm/dL (2.2-3.7); Glomerular Filtration Rate 76; Glucose 130 mg/dL (70-105)
[2019-06-14 22:56] LABS: Band Neutrophils % 1 % (0-10); Eosinophils % (Manual) 2 % (0-7); Lymphocytes % 18 % (15-49); Monocytes % (Manual) 13 % (1-12); Platelet Estimate NORMAL (NORMAL); RBC Morphology NORMAL (NORMAL); Reactive Lymphocytes 2 % (0-2); Segmented Neutrophils % 64 % (38-78)
[2019-06-15 00:49] LABS: Appearance,Urine CLEAR; Bacteria,Urine 0 /hpf (0); Bilirubin,Urine NEG (NEG); Color,Urine YELLOW; Culture Indicated,Urine NO; Glucose,Urine (UA) NEGATIVE (NEG); Ketones,Urine 5/TR mg/dL (NEG); Leukocyte Esterase,Urine NEG /uL (NEG); Mucus,Urine MANY /hpf (0); Nitrate,Urine NEG (NEG); Protein,Urine NEG (NEG); Specific Gravity,Urine 1.026 (1.000-1.035); Urine Blood NEG mg/dL (<0.03); Urine Hyaline Cast 14 /lpf (0-2); Urine RBC 3 /hpf (0-1); Urine Squamous Epithelial Cell 0 /hpf (0-4); Urine Transitional Epi Cells < 1 /hpf (0-2); Urine WBC 3 /hpf (0-4); Urobilinogen,Urine NEG (NEG)
--- NOTE | 2019-06-15 02:28 | Cat Scan Report ---
CLINICAL INFORMATION: Hypoxia COMPARISON: 09/09/2015 CT angiogram TECHNIQUE: ml of [id number]-370 were injected intravenously. Using SmartPrep to maximize pulmonary artery opacification, .625mm helical slices were obtained from the lung apices through the lung bases. Following reconstruction, 2.5 mm sagittal, coronal, and axial reformations were processed. The exam was reviewed at mediastinal, lung, and bone windows. The exam was performed using radiation dose optimization techniques including, but not limited to, automated exposure control, adjustment of the mA and/or kV according to patient size and use of iterative reconstruction technique. FINDINGS: Mediastinal windows show mild congestion of the pulmonary arteries suggesting congestive heart failure. No emboli identified. The thoracic aorta is normal in diameter with scattered atherosclerotic plaque. There is no adenopathy in the mediastinal axillary or hilar regions the heart is moderately enlarged slightly increased from the previous exam. Esophagus is grossly normal. Thyroid is diminutive. Pulmonary parenchymal windows show vague groundglass peribronchovascular edema or infiltrate centrally. No kuldip infiltrates. No effusions. IMPRESSION: 1. No evidence of pulmonary embolus. 2. Probable mild CHF. Please correlate with clinical history and possibly BNP. Peribronchovascular airspace disease could also potentially represent early ARDS or aspiration. Interpreted and Authenticated by: Marco Esposito 06/15/19
--- NOTE | 2019-06-15 02:29 | XRay Report ---
CLINICAL INFORMATION: low room air sats COMPARISON: 02/23/2015 and 09/09/2015 FINDINGS: The heart is mildly enlarged. Mediastinum is unremarkable. Upper lobe pulmonary vessels are slightly distended no definite edema. Lungs are clear. No effusions. IMPRESSION: Mild CHF or volume overload. Interpreted and Authenticated by: Marco Esposito 06/15/19
--- NOTE | 2019-06-15 02:38 | Cat Scan Report ---
CLINICAL INFORMATION: Trauma COMPARISON: None. TECHNIQUE: 2.5 mm helical slices were obtained in the skull base to vertex. Following reconstruction, axial reformatted images were reviewed at bone and parenchymal windows. The exam was performed using radiation dose optimization techniques including, but not limited to, automated exposure control, adjustment of the mA and/or kV according to patient size and use of iterative reconstruction technique. FINDINGS: The ventricles, sulci, fissures, and cisterns are symmetrically enlarged compatible with mild age-related atrophy. There is no subdural hemorrhage or other extra-axial fluid collection appreciated. Mild patchy chronic ischemic changes within the cerebral white matter are typical for age. There is no intracerebral hemorrhage, mass effect or edema. Bone windows show no fracture. Mild subluxation of the right TMJ with associated degeneration noted. IMPRESSION: Mild atrophy and patchy chronic ischemic changes in the cerebral white matter expected for age. There is no intracerebral hemorrhage or posttraumatic change Subluxation right TMJ with TMJ degeneration. Moderate right ethmoid and maxillary sinusitis - new from prior exam Interpreted and Authenticated by: Marco Esposito 06/15/19
--- NOTE | 2019-06-15 03:38 | Cat Scan Report ---
CLINICAL INFORMATION: Trauma COMPARISON: None. TECHNIQUE: 0.625 mm helical slices were obtained from the skull base through the superior T2 end plate, and following reconstruction, 2.5 mm sagittal, coronal and axial reformations were then processed. The exam was reviewed at bone and soft tissue windows. The exam was performed using radiation dose optimization techniques including, but not limited to, automated exposure control, adjustment of the mA and/or kV according to patient size and use of iterative reconstruction technique. FINDINGS: There is straightening of lordotic curve suggesting muscle spasm - stable from prior film. Solid anterior C6-7 fusion changes noted. No soft tissue abnormality. No fracture identified The C2-3 disc level is normal. At C3-4, mild broad disc spur complex with left-sided asymmetry and facet arthropathy result in moderate left lateral recess/ IV foraminal narrowing potential impinging the exiting left C4 nerve root. Mild central canal stenosis At C4-5, a large broad disc spur complex also with irregular calcification in the adjacent posterior longitudinal ligament results in severe central canal stenosis and compression of the cervical cord. Mild narrowing of the right lateral recess /IV foramen with impingement of the exiting right C5 nerve root. At C5-6, a large broad calcified disc spur complex with calcification of adjacent posterior longitudinal ligament results in severe central canal stenosis and right lateral recess / IV foraminal stenosis with impingement of the exiting right C6 nerve root. At C6-7 fusion site, a small central spur from the posterior disc margin mildly impinges the anterior surface of the cervical cord At C7-T1, a moderate broad disc spur complex with left-sided asymmetry results in mild central canal and moderate left lateral recess/ IV foraminal narrowing. Impingement of the exiting left C8 nerve root IMPRESSION: 1. No fracture or posttraumatic change 2. 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 This shows slight progression - please see above. 3. C6-7 fusion change is solid 4. Moderate mucosal thickening right maxillary sinus compatible with sinusitis Interpreted and Authenticated by: Marco Esposito 06/15/19
--- NOTE | 2019-06-15 06:14 | Cat Scan Report ---
CLINICAL INFORMATION: Trauma COMPARISON: None. TECHNIQUE: 0.625 mm helical slices were obtained from the mid T12 through mid S2 vertebral bodies. Following reconstruction, 2.5 mm coronal, sagittal, and axial reformations (angle to the disc spaces) were processed. Exam was reviewed at bone and soft tissue windows.The exam was performed using radiation dose optimization techniques including, but not limited to, automated exposure control, adjustment of the mA and/or kV according to patient size and use of iterative reconstruction technique. FINDINGS: The lumbar spine is anatomically aligned. Long posterior fusion between T11 and S1 provided by pedicle screws, long rods and bone chips over the posterior elements. There are also interbody grafts supporting anterior fusion fusion L5-S1 and L1-2. Mild chronic wedging of the L2 vertebral body appreciated. No other osseous abnormalities - there is no evidence of fracture. At L1-2 and L2-3, there is also wide laminectomy changes with exuberant granulation tissue in the former laminae and throughout the posterior lateral central canal. At L1-2, the granulation tissue extends into the lateral recesses and IV foramen encasing the exiting L1 and descending L2 nerve roots. It partially compresses the thecal sac At L3-4, minimal broad disc protrusion and facet arthropathy result in mild central canal narrowing. At L4-5, mild broad disc protrusion mildly impinges the thecal sac. There is moderate facet arthropathy with minimal central canal narrowing At L5-S1, there is only minimal granulation tissue formation region of the lamina. The central canal and IV foramen are normal width IMPRESSION: 1. No fracture or other acute posttraumatic change following recent injury. 2. Posterior fusion T11-S1 and anterior fusion L5-S1 and L1-2. There is mild chronic wedging of L2. Wide laminectomy changes noted at L1-2 and L2-3., In the L1-2 region, there is is exuberant postsurgical granulation reaction which moderately compresses the thecal sac and encases the exiting L1 nerve roots in the IV foramen and the descending L2 nerve roots in the lateral recesses. Please correlate with L1 and L2 radiculopathy Interpreted and Authenticated by: Marco Esposito 06/15/19
[2019-06-15] MEDS ORDERED: POTASSIUM CHLORIDE 20 MEQ TABLET PO PRN ×4 (10:26→10:50)
[2019-06-15] MEDS ORDERED: POLYETHYLENE GLYCOL 3350 17 GM PACKET PO PRN ×2 (10:26→10:50)
[2019-06-15] MEDS ORDERED: POTASSIUM CHLORIDE 40 MEQ in DEXTROSE 5% IN WATER 500 ML IV PRN ×2 (10:26→10:50)
[2019-06-15] MEDS ORDERED: SENNOSIDES 1 TABLET PO PRN ×2 (10:26→10:50)
[2019-06-15] MEDS ORDERED: ONDANSETRON 4 MG/2 ML VIAL IV PRN ×2 (10:26→10:50)
[2019-06-15] MEDS ORDERED: MAGNESIUM SULFATE 2 GM/50 ML BAG IV PRN ×2 (10:26→10:50)
[2019-06-15] MEDS ORDERED: IPRATROPIUM/ALBUTEROL 3 ML AMPUL.NEB NEB PRN ×2 (10:26→10:50)
[2019-06-15] MEDS ORDERED: ACETAMINOPHEN 325 MG TABLET PO PRN ×2 (10:26→10:50)
[2019-06-15] MEDS ORDERED: LACTULOSE 20 GM/30 ML ORAL.SOL PO PRN ×2 (10:26→10:50)
[2019-06-15] MEDS ORDERED: FUROSEMIDE 40 MG/4 ML VIAL IV ONE ×2 (10:30→10:50)
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
[2019-06-15] MEDS ORDERED: 0.9 % SODIUM CHLORIDE 10 ML SYRINGE IV SCH (14:00)
[2019-06-15] MEDS ORDERED: BUTALB/ACETAMINOPHEN/CAFFEINE 1 TABLET PO PRN (17:11)
[2019-06-15] MEDS: 0.9 % SODIUM CHLORIDE 10 ML SYRINGE IV SCH ×2 (18:22→21:22)
[2019-06-15] MEDS ORDERED: APIXABAN 2.5 MG TABLET PO SCH (21:00)
[2019-06-15] MEDS ORDERED: DOCUSATE SODIUM 100 MG CAPSULE PO SCH (21:00)
[2019-06-15] MEDS ORDERED: FAMOTIDINE 20 MG TABLET PO SCH (21:00)
[2019-06-15] MEDS: traZODone HCL 100 MG TABLET PO SCH (21:22)
[2019-06-15] MEDS: MODAFINIL 200 MG TABLET PO SCH (21:22)
[2019-06-15] MEDS: FAMOTIDINE 20 MG TABLET PO SCH (21:22)
[2019-06-15] MEDS: GABAPENTIN 300 MG CAPSULE PO SCH (21:22)
[2019-06-15] MEDS: DOCUSATE SODIUM 100 MG CAPSULE PO SCH (21:22)
[2019-06-15] MEDS: DULoxetine 30 MG CAPSULE PO SCH (21:22)
[2019-06-15] MEDS: SIMVASTATIN 40 MG TABLET PO SCH (23:30)
--- NOTE | 2019-06-16 07:29 | Internal Med Progress Note ---
Medical - PN: Subj Patient information: Note initiated : 06/16/19 at 7:23 am Service Date, if different from initiated Date: [] Patient: Janee Orozco a 68 y/o F admitted on 06/15/19 for fall, altered LOC. Chief Complaint: [] Interval history: Ms. Orozco is a 68 year old F Presents the ED after multiple falls. Patient states she has been falling 6-7 times a week the past week or so. States she is also been falling ever since she had her knee replacements last January, at least several times a month. She was seen yesterday in the ED after a fall and hit her head when she fell. Patient was checked out with the spinal CTs and had CTs which was unremarkable for any acute pathology. She was prescribed front wheel walker discharge. And then presented back today because she has had multiple falls EMS felt that she had some altered mental status. Work-up in the ED included. Spinal CTs and head CT which were unremarkable for any acute pathology. She was noted to be hypoxic in the ED for period of time and a CT of the chest was done which showed no PE but did show some mild digestion. BNP relatively unimpressive. She does have some lower extremity edema which she gets from time to time. He sleeps flat on her back. She denies shortness of breath. Visited she had saturations in the mid 90s on room air. She attributed the hypoxia earlier to shallow breathing. Denies coughing. Only real complaint is weakness and falling and she does have a headache. Her first knee surgery was a left knee total arthroplasty with a revision in April 2018 and then she had a total on the right in January. Speak with the patient she does not give any good reason why he is falling more lately other than that she says she just has not recovered from the surgeries. She says her multiple sclerosis is stable and she does not feel she is worsening from that. She is not had any change in medication she feels she is not being oversedated from her medications. 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 That she is in a recliner most of the day and not moving despite his encouragement. 06/16 Doing well. Back on room air. No new complaints overnight events. Sitting up in bed a good breakfast. Decreased swelling her legs. Good urine output. Review of Systems: denies headache/fever/chills/nausea/vomiting/chest or abdominal pain/cough/dyspnea/diarrhea. Otherwise see above. - Constitutional Vitals: Vital Signs Temp Pulse Resp BP Pulse Ox 97.9 F 82 12 139/80 92 06/16/19 02:47 06/16/19 02:47 06/16/19 02:47 06/16/19 02:47 06/16/19 02:47 Period Temp Pulse Resp BP Sys/[place] Pulse Ox Last 24 Hr 97.9 F-99.3 F 80-91 10-22 125-161/69-87 80-99 Intake and Output 06/15/19 06/16/19 06/16/19 21:59 05:59 13:59 Intake Total 120 Output Total 1300 Balance -1300 120 Weight 81.102 kg Intake & Output: Intake & Output 06/15/19 06/16/19 06/16/19 21:59 05:59 13:59 Intake Total 120 Output Total 1300 Balance -1300 120 Weight 81.102 kg Intake: Oral 120 Output: Void Amount 1300 Other: Urine Appearance Clear Urine Color Pale # Voids 1 1 # Bowel Movements 1 Exam: General: Alert, Awake, No acute Distress Eyes/N/T: EOMI, Head/Neck: neck supple, CV: RRR, No murmurs, Pulm: Clear b/l, no wheezing/rhonchi/rales Abd: soft, nontender, +BS x4 Ext: no clubbing/cyanosis, mild b/l LE edema improving Neuro: Alert, no focal deficits, moves all extremities, Skin: warm/dry Medical - PN: Obj Da - Labs CBC & Chem 7: 06/16/19 05:51 06/14/19 21:50 Labs: Abnormal Lab Results 06/15/19 06/14/19 06/14/19 00:10 21:50 21:50 WBC RBC Hgb Hct POC Hct 30.0 L MCV MCH Monocytes % (Manual) POC Total CO2 33 H Glucose 130 H POC Glucose 129 H POC WB Ioniz Calcium 1.12 L NT-Pro-B Natriuret Pep 461.9 H Total Protein 5.8 L Urine Ketones 5/tr A Urine RBC 3 H Hyaline Casts 14 H Urine Mucus Many A 06/14/19 21:50 WBC 3.0 L RBC 2.96 L Hgb 10.1 L Hct 32.3 L POC Hct MCV 109.1 H MCH 34.1 H Monocytes % (Manual) 13 H POC Total CO2 Glucose POC Glucose POC WB Ioniz Calcium NT-Pro-B Natriuret Pep Total Protein Urine Ketones Urine RBC Hyaline Casts Urine Mucus Meds: Medications Acetaminophen (Tylenol) 650 mg PO Q6HP PRN PRN Reason: PAIN/FEVER > 101 Acetaminophen/Butalbital/Caffeine (Fioricet) 1 tab PO Q6HP PRN PRN Reason: Migraine Headache Albuterol/Ipratropium (Duoneb) 3 ml NEB Q4HP PRN PRN Reason: Shortness Of Breath Diazepam (Valium) 10 mg PO QIDP PRN PRN Reason: Muscle Spasm Docusate Sodium (Colace) 100 mg PO BID [facility] Last Admin: 06/15/19 21:22 Dose: 100 mg Documented by: Duloxetine HCl (Cymbalta) 30 mg PO BID [facility] Last Admin: 06/15/19 21:22 Dose: 30 mg Documented by: Enoxaparin Sodium (Lovenox) 40 mg SQ DAILY [facility] Famotidine (Pepcid) 20 mg PO BID [facility] Last Admin: 06/15/19 21:22 Dose: 20 mg Documented by: Gabapentin (Neurontin) 600 mg PO TID [facility] Last Admin: 06/15/19 21:22 Dose: 600 mg Documented by: Potassium Chloride 40 meq/ (Dextrose) 520 mls @ 130 mls/hr IV UD PRN PRN Reason: Potassium < 3 Magnesium Sulfate (Magnesium Sulfate) 2 gm in 50 mls @ 50 mls/hr IV UD PRN PRN Reason: Magnesium </= 1.6 Lactulose (Cephulac) 20 gm PO DAILYP PRN PRN Reason: Constipation Modafinil (Provigil) 200 mg PO BID [facility] Last Admin: 06/15/19 21:22 Dose: 200 mg Documented by: Ondansetron HCl (Zofran) 4 mg IV Q4HP PRN PRN Reason: Nausea And Vomiting Polyethylene Glycol (Miralax) 17 gm PO DAILYP PRN PRN Reason: Constipation Potassium Chloride (Kdur) 40 meq PO UD PRN PRN Reason: Potssium is 3-3.5 Potassium Chloride (Kdur) 40 meq PO UD PRN PRN Reason: Potassium < 3 Senna (Senokot) 2 tab PO DAILYP PRN PRN Reason: Constipation Simvastatin (Zocor) 40 mg PO HS [facility] Last Admin: 06/15/19 23:30 Dose: 40 mg Documented by: Sodium Chloride (Saline Flush) 10 ml IV Q8 [facility] Last Admin: 06/15/19 21:22 Dose: 10 ml Documented by: Trazodone HCl (Desyrel) 100 mg PO HS [facility] Last Admin: 06/15/19 21:22 Dose: 100 mg Documented by: Medical - PN: A/P - Time Spent With Patient Total time spent is greater than 50% in coordination of care (as documented) at patient's floor/unit and/or counseling patient: - Narrative A/P Narrative: A: *Generalized weakness/deconditioning/debility/falls: since Knee replacement last year, but gradually worsening + underlying MS dz -Per patient has been participating less and less in physical therapy and becoming more more sedentary at home despite his encouragement for her to stop and move around. *Acute hypoxic respiratory failure: 2/2 likely chf -good UOP -now back on room air -CXR improved *Chronic back pain: *Multiple sclerosis: follows with neurologist in [place] -Patient feels is stable and feels symptoms have not changed, says she talks to her neurologist over the phone occasionally *Anemia, chronic: *GERD: * P: -IV lasix today -echo pending then further heart med mgmt per results -prn wean O2 if needed -pt/ot -cont home MS meds -CM for placement needs vs HHC -ppx: lovenox/home h2 full code
[2019-06-16 07:48] LABS: Basophils # (Auto) 0.01 K/mcL (0.00-0.30); Basophils % (Auto) 0.4 % (0.0-2.0); Eosinophils # (Auto) 0.09 K/mcL (0.00-0.70); Eosinophils % (Auto) 3.4 % (0.0-7.0); Granulocytes % (Auto) 58.2 % (38.0-78.0); Hematocrit 33.7 % (34.1-44.9); Hemoglobin 10.7 g/dL (11.2-15.7); Lymphocytes # (Auto) 0.72 K/mcL (1.50-4.80); Lymphocytes % (Auto) 27.4 % (15.5-49.0); Mean Cell Volume 107.3 fL (80.0-100.0); Mean Corpuscular HGB Conc 31.8 g/dL (31.0-36.0); Mean Platelet Volume 8.6 fL (7.4-10.4); Monocytes # (Auto) 0.28 K/mcL (0.10-0.90); Monocytes % (Auto) 10.6 % (1.0-12.0); Platelet Count 193 K/mcL (140-440); RBC 3.14 M/mcL (3.59-5.38); Red Cell Distribution Width 14.3 % (11.5-14.5); WBC 2.6 K/mcL (4.50-11.00)
[2019-06-16] MEDS ORDERED: FUROSEMIDE 20 MG/2 ML VIAL IV ONE ×3 (08:25→16:30)
[2019-06-16 08:26] LABS: ALT/SGPT 11 U/l (0-40); AST/SGOT 18 U/l (0-37); Albumin 3.5 gm/dL (3.2-5.2); Albumin/Globulin Ratio 1.4 (1.0-2.3); Alkaline Phosphatase 74 U/L (39-117); Bilirubin,Direct < 0.2 mg/dL (0.0-0.3); Bilirubin,Total 0.2 mg/dL (0.0-1.0); Blood Urea Nitrogen 12 mg/dl (8-23); Carbon Dioxide 32 mmol/L (22-30); Chloride 100 mmol/L (96-108); Globulin 2.5 gm/dL (2.2-3.7); Glomerular Filtration Rate 94; Glucose 105 mg/dL (70-105); Lactate Dehydrogenase 327 U/L (94-250); Phosphorous 4.5 mg/dL (2.7-4.5); Triglycerides 74 mg/dl (<150); Uric Acid 3.6 mg/dL (2.5-8.0)
[2019-06-16] MEDS ORDERED: ENOXAPARIN 40 MG/0.4 ML SYRINGE SQ SCH (09:00)
--- NOTE | 2019-06-16 09:27 | XRay Report ---
CLINICAL INFORMATION: chf s/p diuresis COMPARISON: None. FINDINGS: Heart has returned to normal in size. Mediastinum is unremarkable. Pulmonary vessels have returned to normal size. Lungs are clear. No effusion IMPRESSION: Interval resolution of CHF. Negative Interpreted and Authenticated by: Marco Esposito 06/16/19
[2019-06-16] MEDS: DOCUSATE SODIUM 100 MG CAPSULE PO SCH ×2 (09:36→20:36)
[2019-06-16] MEDS: GABAPENTIN 300 MG CAPSULE PO SCH ×3 (09:36→20:36)
[2019-06-16] MEDS: DULoxetine 30 MG CAPSULE PO SCH ×2 (09:36→20:36)
[2019-06-16] MEDS: FAMOTIDINE 20 MG TABLET PO SCH ×2 (09:36→20:36)
[2019-06-16] MEDS: ENOXAPARIN 40 MG/0.4 ML SYRINGE SQ SCH (09:37)
[2019-06-16] MEDS: 0.9 % SODIUM CHLORIDE 10 ML SYRINGE IV SCH ×3 (09:43→20:41)
[2019-06-16] MEDS: MODAFINIL 200 MG TABLET PO SCH ×2 (10:26→20:37)
[2019-06-16] MEDS: DIAZEPAM 10 MG TABLET PO PRN (11:24)
[2019-06-16] MEDS: traZODone HCL 100 MG TABLET PO SCH (20:36)
[2019-06-16] MEDS: SIMVASTATIN 40 MG TABLET PO SCH (20:36)
[2019-06-17] MEDS: 0.9 % SODIUM CHLORIDE 10 ML SYRINGE IV SCH ×3 (06:34→21:03)
[2019-06-17 06:57] LABS: ALT/SGPT 12 U/l (0-40); AST/SGOT 18 U/l (0-37); Albumin 3.8 gm/dL (3.2-5.2); Albumin/Globulin Ratio 1.6 (1.0-2.3); Alkaline Phosphatase 71 U/L (39-117); Basophils # (Auto) 0.01 K/mcL (0.00-0.30); Basophils % (Auto) 0.4 % (0.0-2.0); Bilirubin,Direct < 0.2 mg/dL (0.0-0.3); Bilirubin,Total 0.3 mg/dL (0.0-1.0); Blood Urea Nitrogen 17 mg/dl (8-23); Calcium 8.9 mg/dl (8.6-10.4); Carbon Dioxide 32 mmol/L (22-30); Chloride 97 mmol/L (96-108); Eosinophils # (Auto) 0.09 K/mcL (0.00-0.70); Eosinophils % (Auto) 3.5 % (0.0-7.0); Globulin 2.4 gm/dL (2.2-3.7); Glomerular Filtration Rate 94; Glucose 128 mg/dL (70-105); Granulocytes % (Auto) 56.8 % (38.0-78.0); Hematocrit 35.6 % (34.1-44.9); Hemoglobin 11.2 g/dL (11.2-15.7); Lactate Dehydrogenase 313 U/L (94-250); Lymphocytes # (Auto) 0.75 K/mcL (1.50-4.80); Lymphocytes % (Auto) 29.5 % (15.5-49.0); Mean Cell Volume 107.2 fL (80.0-100.0); Mean Corpuscular HGB Conc 31.5 g/dL (31.0-36.0); Mean Platelet Volume 8.4 fL (7.4-10.4); Monocytes # (Auto) 0.25 K/mcL (0.10-0.90); Monocytes % (Auto) 9.8 % (1.0-12.0); Phosphorous 4.6 mg/dL (2.7-4.5); Platelet Count 200 K/mcL (140-440); RBC 3.32 M/mcL (3.59-5.38); Red Cell Distribution Width 14.6 % (11.5-14.5); Triglycerides 110 mg/dl (<150); Uric Acid 3.5 mg/dL (2.5-8.0); WBC 2.5 K/mcL (4.50-11.00)
[2019-06-17] MEDS: ENOXAPARIN 40 MG/0.4 ML SYRINGE SQ SCH (08:10)
[2019-06-17] MEDS: MODAFINIL 200 MG TABLET PO SCH ×2 (08:13→13:03)
[2019-06-17] MEDS: DULoxetine 30 MG CAPSULE PO SCH ×2 (08:13→20:42)
[2019-06-17] MEDS: DOCUSATE SODIUM 100 MG CAPSULE PO SCH ×2 (08:13→20:41)
[2019-06-17] MEDS: GABAPENTIN 300 MG CAPSULE PO SCH ×3 (08:13→20:45)
[2019-06-17] MEDS: FAMOTIDINE 20 MG TABLET PO SCH ×2 (08:13→20:43)
--- NOTE | 2019-06-17 18:31 | Internal Med Progress Note ---
Medical - PN: Subj Patient information: Note initiated : 06/17/19 at 6:28 pm Service Date, if different from initiated Date: [] Patient: Janee Orozco a 68 y/o F admitted on 06/15/19 for fall, altered LOC. Chief Complaint: [] Interval history: Ms. Orozco is a 68 year old F Presents the ED after multiple falls. Patient states she has been falling 6-7 times a week the past week or so. States she is also been falling ever since she had her knee replacements last January, at least several times a month. She was seen yesterday in the ED after a fall and hit her head when she fell. Patient was checked out with the spinal CTs and had CTs which was unremarkable for any acute pathology. She was prescribed front wheel walker discharge. And then presented back today because she has had multiple falls EMS felt that she had some altered mental status. Work-up in the ED included. Spinal CTs and head CT which were unremarkable for any acute pathology. She was noted to be hypoxic in the ED for period of time and a CT of the chest was done which showed no PE but did show some mild congestion. BNP relatively unimpressive. She does have some lower extremity edema which she gets from time to time. He sleeps flat on her back. She denies shortness of breath. Visited she had saturations in the mid 90s on room air. She attributed the hypoxia earlier to shallow breathing. Denies coughing. Only real complaint is weakness and falling and she does have a headache. Her first knee surgery was a left knee total arthroplasty with a revision in April 2018 and then she had a total on the right in January. Speak with the patient she does not give any good reason why he is falling more lately other than that she says she just has not recovered from the surgeries. She says her multiple sclerosis is stable and she does not feel she is worsening from that. She is not had any change in medication she feels she is not being oversedated from her medications. 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 That she is in a recliner most of the day and not moving despite his encouragement. 06/16 Doing well. Back on room air. No new complaints overnight events. Sitting up in bed a good breakfast. Decreased swelling her legs. Good urine output. 06/17 Continues to do well. Working with PT. Continues to have decreased swelling in that urine output. - Constitutional Vitals: Vital Signs Temp Pulse Resp BP Pulse Ox 99.1 F H 92 H 18 122/86 93 06/17/19 16:00 06/17/19 16:00 06/17/19 16:00 06/17/19 16:00 06/17/19 16:00 Period Temp Pulse Resp BP Sys/[place] Pulse Ox Last 24 Hr 96.3 F-99.1 F 76-103 14-18 103-134/71-86 90-93 Intake and Output 06/17/19 06/17/19 06/17/19 05:59 13:59 21:59 Intake Total 480 300 Output Total 700 600 600 Balance -220 -600 -300 Weight 175 lb 8 oz Patient Weight 06/18/19 05:59 Weight 175 lb 8 oz Intake & Output: Intake & Output 06/17/19 06/17/19 06/17/19 05:59 13:59 21:59 Intake Total 480 300 Output Total 700 600 600 Balance -220 -600 -300 Weight 175 lb 8 oz Intake: Oral 480 300 Output: Void Amount 700 600 600 Other: Meal Dinner fruit salad Percent of Meal Consumed 100% 100% Feeding Ability Independent Urine Appearance Clear Clear Fem Cath Clear Urine Color Bright Yellow Pale Bright Yellow Fem Cath Bright Yellow Urine Odor Normal Exam: General: No acute distress HEENT: Ecchymoses on the cheek and forehead Chest: Clear to auscultation bilaterally Cardiovascular: Regular rate and rhythm, trace edema Abdomen: Soft, nontender Neuro: Alert, moves all extremities equally. Uses walker for ambulation. Medical - PN: Obj Da - Labs CBC & Chem 7: 06/17/19 05:19 06/17/19 05:19 Labs: Abnormal Lab Results 06/17/19 06/17/19 06/16/19 05:19 05:19 05:51 WBC 2.5 L RBC 3.32 L Hgb Hct POC Hct MCV 107.2 H MCH RDW 14.6 H Gran # 1.44 L Lymph # (Auto) 0.75 L Monocytes % (Manual) Carbon Dioxide 32 H 32 H POC Total CO2 Glucose 128 H POC Glucose POC WB Ioniz Calcium Phosphorus 4.6 H Lactate Dehydrogenase 313 H 327 H NT-Pro-B Natriuret Pep Total Protein Urine Ketones Urine RBC Hyaline Casts Urine Mucus 06/16/19 06/15/19 06/14/19 05:51 00:10 21:50 WBC 2.6 L RBC 3.14 L Hgb 10.7 L Hct 33.7 L POC Hct MCV 107.3 H MCH 34.1 H RDW Gran # 1.53 L Lymph # (Auto) 0.72 L Monocytes % (Manual) Carbon Dioxide POC Total CO2 Glucose POC Glucose POC WB Ioniz Calcium Phosphorus Lactate Dehydrogenase NT-Pro-B Natriuret Pep 461.9 H Total Protein Urine Ketones 5/tr A Urine RBC 3 H Hyaline Casts 14 H Urine Mucus Many A 06/14/19 06/14/19 21:50 21:50 WBC 3.0 L RBC 2.96 L Hgb 10.1 L Hct 32.3 L POC Hct 30.0 L MCV 109.1 H MCH 34.1 H RDW Gran # Lymph # (Auto) Monocytes % (Manual) 13 H Carbon Dioxide POC Total CO2 33 H Glucose 130 H POC Glucose 129 H POC WB Ioniz Calcium 1.12 L Phosphorus Lactate Dehydrogenase NT-Pro-B Natriuret Pep Total Protein 5.8 L Urine Ketones Urine RBC Hyaline Casts Urine Mucus Meds: Medications Acetaminophen (Tylenol) 650 mg PO Q6HP PRN PRN Reason: PAIN/FEVER > 101 Acetaminophen/Butalbital/Caffeine (Fioricet) 1 tab PO Q6HP PRN PRN Reason: Migraine Headache Albuterol/Ipratropium (Duoneb) 3 ml NEB Q4HP PRN PRN Reason: Shortness Of Breath Diazepam (Valium) 10 mg PO QIDP PRN PRN Reason: Muscle Spasm Last Admin: 06/16/19 11:24 Dose: 10 mg Documented by: Docusate Sodium (Colace) 100 mg PO BID [facility] Last Admin: 06/17/19 08:13 Dose: 100 mg Documented by: Duloxetine HCl (Cymbalta) 30 mg PO BID [facility] Last Admin: 06/17/19 08:13 Dose: 30 mg Documented by: Enoxaparin Sodium (Lovenox) 40 mg SQ DAILY [facility] Last Admin: 06/17/19 08:10 Dose: 40 mg Documented by: Famotidine (Pepcid) 20 mg PO BID [facility] Last Admin: 06/17/19 08:13 Dose: 20 mg Documented by: Gabapentin (Neurontin) 600 mg PO TID [facility] Last Admin: 06/17/19 15:15 Dose: 600 mg Documented by: Potassium Chloride 40 meq/ (Dextrose) 520 mls @ 130 mls/hr IV UD PRN PRN Reason: Potassium < 3 Magnesium Sulfate (Magnesium Sulfate) 2 gm in 50 mls @ 50 mls/hr IV UD PRN PRN Reason: Magnesium </= 1.6 Lactulose (Cephulac) 20 gm PO DAILYP PRN PRN Reason: Constipation Modafinil (Provigil) 200 mg PO BID@0900,1300 [facility] Last Admin: 06/17/19 13:03 Dose: 200 mg Documented by: Ondansetron HCl (Zofran) 4 mg IV Q4HP PRN PRN Reason: Nausea And Vomiting Polyethylene Glycol (Miralax) 17 gm PO DAILYP PRN PRN Reason: Constipation Potassium Chloride (Kdur) 40 meq PO UD PRN PRN Reason: Potssium is 3-3.5 Potassium Chloride (Kdur) 40 meq PO UD PRN PRN Reason: Potassium < 3 Senna (Senokot) 2 tab PO DAILYP PRN PRN Reason: Constipation Simvastatin (Zocor) 40 mg PO [facility] Last Admin: 06/16/19 20:36 Dose: 40 mg Documented by: Sodium Chloride (Saline Flush) 10 ml IV Q8 [facility] Last Admin: 06/17/19 13:04 Dose: 10 ml Documented by: Trazodone HCl (Desyrel) 100 mg PO [facility] Last Admin: 06/16/19 20:36 Dose: 100 mg Documented by: - Impressions Echocardiogram: Preserved LVEF No LV diastolic dysfunction LV normal size and thickness Normal RV function No significant valvular abnormalities Medical - PN: A/P - Time Spent With Patient Total time spent is greater than 50% in coordination of care (as documented) at patient's floor/unit and/or counseling patient: 25 - 35 minutes - Narrative A/P Narrative: A: *Generalized weakness/deconditioning/debility/falls: since knee replacement last year, but gradually worsening + underlying MS dz -Per patient has been participating less and less in physical therapy and becoming more more sedentary at home despite his encouragement for her to stop and move around. *Acute hypoxic respiratory failure: 2/2 likely CHF -good UOP -now back on room air -CXR improved -Echo with normal LV function *Chronic back pain: *Multiple sclerosis: follows with neurologist in [place] -Patient feels is stable and feels symptoms have not changed, says she talks to her neurologist over the phone occasionally *Anemia, chronic: *GERD: P: -pt/ot -cont home MS meds -CM for placement needs--> SNF -ppx: lovenox/home h2 full code
[2019-06-17] MEDS: traZODone HCL 100 MG TABLET PO SCH (20:41)
[2019-06-17] MEDS: DIAZEPAM 10 MG TABLET PO PRN (20:42)
[2019-06-17] MEDS: SIMVASTATIN 40 MG TABLET PO SCH (20:45)
[2019-06-18] MEDS: 0.9 % SODIUM CHLORIDE 10 ML SYRINGE IV SCH (07:33)
[2019-06-18] MEDS: FAMOTIDINE 20 MG TABLET PO SCH (08:26)
[2019-06-18] MEDS: MODAFINIL 200 MG TABLET PO SCH (08:26)
[2019-06-18] MEDS: DULoxetine 30 MG CAPSULE PO SCH (08:27)
[2019-06-18] MEDS: GABAPENTIN 300 MG CAPSULE PO SCH (08:27)
[2019-06-18] MEDS: DOCUSATE SODIUM 100 MG CAPSULE PO SCH (08:27)
[2019-06-18] MEDS: ENOXAPARIN 40 MG/0.4 ML SYRINGE SQ SCH (08:28)
--- NOTE | 2019-06-18 08:31 | Discharge Summary ---
Medical - DS: Prov Patient information: Note initiated : 06/18/19 at 8:28 am Service Date, if different from initiated Date: [] Patient: Janee Orozco 68 y/o F admitted on 06/15/19 for fall, altered LOC. Date of admission: 06/15/19 10:41 Discharge date: 06/18/19 Primary care physician: Eitan Joseph DO Attending physician on admission: Shen Torres Consults: 06/15/19 08:11 Consult to Physician [CONS] Stat Comment: Consulting Provider: Shen Torres Reason For Exam: Physician to Consult 06/17/19 11:50 Consult to Physician [CONS] Routine Comment: Consulting Provider: Nirmala Albarran Reason For Exam: Physician to Consult Attending physician on discharge: Malka Huerta Medical - DS: Meds - Discharge Medications Prescriptions: Medina 5-325 Tablet 5 - 325 mg PO Q4-6HP PRN #10 PRN Reason: Pain Prescription Printed Active and Home Medications: Home Medications ranitidine HCl 300 mg tablet 300 mg PO DAILYP PRN tab 11/23/14 [History Confirmed 06/15/19 Last Taken 01/21/17 08:00] gabapentin 300 mg capsule 600 mg PO TID 30 Days #180 cap 08/20/15 [Rx Confirmed 06/15/19 Last Taken 02/16/19] Codeine/Butalbital/ASA/Caffein [Fiorinal with Codeine #3 Cap] 1 cap PO Q6HP PRN 04/15/18 [History Confirmed 06/15/19 Last Taken Unknown] DULoxetine HCL [Cymbalta] 30 mg PO BID 04/15/18 [History Confirmed 06/15/19 Last Taken 02/16/19] Diazepam 10 mg PO QIDP PRN 04/15/18 [History Confirmed 06/15/19 Last Taken 02/17/19] Docusate Sodium 100 mg PO BID 04/15/18 [History Confirmed 06/15/19 Last Taken 02/12/19] Modafinil [Provigil] 200 mg PO BID 04/15/18 [History Confirmed 06/15/19 Last Taken 02/16/19] trazodone 50 mg tablet 100 mg PO HS 04/15/18 [History Confirmed 06/15/19 Last Taken 02/16/19] Simvastatin 40 mg PO HS 06/15/19 [History Confirmed 06/15/19 Last Taken Unknown] Medina 5-325 Tablet 5 - 325 mg PO Q4-6HP PRN #10 06/17/19 [Rx Last Taken Unknown] Medical - DS: Hosp Hospital Course: Ms. Orozco is a 68 year old F Presents the ED after multiple falls. Patient states she has been falling 6-7 times a week the past week or so. States she is also been falling ever since she had her knee replacements last January, at least several times a month. She was seen yesterday in the ED after a fall and hit her head when she fell. Patient was checked out with the spinal CTs and had CTs which was unremarkable for any acute pathology. She was prescribed front wheel walker discharge. And then presented back today because she has had multiple falls EMS felt that she had some altered mental status. Work-up in the ED included. Spinal CTs and head CT which were unremarkable for any acute pathology. She was noted to be hypoxic in the ED for period of time and a CT of the chest was done which showed no PE but did show some mild congestion. BNP relatively unimpressive. She does have some lower extremity edema which she gets from time to time. He sleeps flat on her back. She denies shortness of breath. Visited she had saturations in the mid 90s on room air. She attributed the hypoxia earlier to shallow breathing. Denies coughing. Only real complaint is weakness and falling and she does have a headache. Her first knee surgery was a left knee total arthroplasty with a revision in April 2018 and then she had a total on the right in January. Speak with the patient she does not give any good reason why he is falling more lately other than that she says she just has not recovered from the surgeries. She says her multiple sclerosis is stable and she does not feel she is worsening from that. She is not had any change in medication she feels she is not being oversedated from her medications. 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 That she is in a recliner most of the day and not moving despite his encouragement. Subsequently, she had demonstrated hypoxia on ABG, and was started on diuresis for pulmonary edema and respiratory failure. 06/16 Doing well. Diuresed and back on room air. No new complaints overnight events. Sitting up in bed a good breakfast. Decreased swelling her legs. Good urine output. 06/17 Continues to do well. Working with PT. Continues to have decreased swelling and good urine output. Continues to do well, stable for discharge *Acute hypoxic respiratory failure secondary to pulmonary edema; normal LVEF and diastolic function *Generalized weakness/deconditioning/debility/falls: since Knee replacement last year, but gradually worsening + underlying MS dz -Per patient has been participating less and less in physical therapy and becoming more more sedentary at home despite his encouragement for her to stop and move around. *Chronic back pain: *Multiple sclerosis: follows with neurologist in [place] -Patient feels is stable and feels symptoms have not changed, says she talks to her neurologist over the phone occasionally *mild volume overload: -chest imaging with some congestion, mild LE edema. *Anemia, chronic: *GERD: Discharge diagnosis: Acute hypoxic respiratory failure due to pulmonary edema - Time Spent with Patient Total time spent providing and/or coordinating discharge services: Less than 30 minutes Medical - DS: Exam - Constitutional Vitals: Vital Signs Temp Pulse Resp BP BP BP Pulse Ox 06/18/19 07:49 98.3 F 79 16 121/71 91 06/18/19 04:00 98.3 F 69 17 106/67 69 L 06/17/19 23:20 86 18 126/78 92 06/17/19 21:45 98.2 F 93 H 15 122/77 97 06/17/19 19:31 91 H 16 128/83 94 06/17/19 16:00 99.1 F H 92 H 18 122/86 93 06/17/19 11:20 98.9 F 100 H 15 113/73 06/17/19 10:00 96.3 F L 103 H 16 117/80 93 Intake and Output 06/17/19 06/18/19 06/18/19 21:59 05:59 13:59 Intake Total 700 410 Output Total 600 250 Balance 100 160 Intake: Oral 700 410 Output: Void Amount 600 250 Other: Meal Dinner Percent of Meal Consumed 98% Feeding Ability Independent Urine Appearance Clear Clear Urine Color Bright Yellow Dark Yellow Urine Odor Strong Weight 177 lb General appearance: no acute distress - Respiratory Respiratory exam: Present: normal respiratory exam - Cardiovascular Cardiovascular exam: Present: normal rate and rhythm - GI/Abdominal GI/Abdominal exam: Present: soft. Absent: distended - Extremities Exam Extremities exam: Present: pedal edema (Trace) - Neurological Exam Neurological exam: Present: alert, oriented X3 Additional comments: Ambulates with walker Medical - DS: Data - Impressions Echocardiogram: New left ejection fraction 75% with normal LV diastolic function Normal right ventricular systolic function Normal atria Mild mitral regurgitation Mild aortic insufficiency without stenosis CTA Chest IMPRESSION: 1. No evidence of pulmonary embolus. 2. Probable mild CHF. Please correlate with clinical history and possibly BNP. Peribronchovascular airspace disease could also potentially represent early ARDS or aspiration. CXR IMPRESSION: Mild CHF or volume overload. CT Head IMPRESSION: Mild atrophy and patchy chronic ischemic changes in the cerebral white matter expected for age. There is no intracerebral hemorrhage or posttraumatic change Subluxation right TMJ with TMJ degeneration. Moderate right ethmoid and maxillary sinusitis - new from prior exam CT C-Spine IMPRESSION: 1. No fracture or posttraumatic change 2. 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 This shows slight progression - please see above. 3. C6-7 fusion change is solid 4. Moderate mucosal thickening right maxillary sinus compatible with sinusitis CT L-Spine IMPRESSION: 1. No fracture or other acute posttraumatic change following recent injury. 2. Posterior fusion T11-S1 and anterior fusion L5-S1 and L1-2. There is mild chronic wedging of L2. Wide laminectomy changes noted at L1-2 and L2-3., In the L1-2 region, there is is exuberant postsurgical granulation reaction which moderately compresses the thecal sac and encases the exiting L1 nerve roots in the IV foramen and the descending L2 nerve roots in the lateral recesses. Please correlate with L1 and L2 radiculopathy Medical - DS: A/P - Patient/Caregiver Discharge Instructions Activity: as per physical therapy, increase activity as tolerated Diet: Regular Diet Prescriptions: Medina 5-325 Tablet 5 - 325 mg PO Q4-6HP PRN #10 PRN Reason: Pain Prescription Printed Other Amb Orders: OT Discharge Order Location: None Selected Physical Therapy at Discharge - General Location: None Selected - Follow up Plan Follow up with: Eitan Joseph DO [Primary Care Provider] [facility]osis: Good Rehab Potential: Good I certify that the patient requires SNF services: Yes Overall status at discharge: patient is progressing back to baseline
== END 2019-06-18 09:08 | DRG 189 ==
LOC: ED 21:31 → ICU 21:31 → OBSVTOIN 06-15 10:41 → MEDSUR 06-15 17:57
PROVIDERS: ADMIT Internal Medicine; ATTEND Internal Medicine

== ENCOUNTER 2020-08-24 15:22 | Inpatient (IN) ==
[2020-08-24] MEDS ORDERED: 0.9 % SODIUM CHLORIDE 1,000 ML IV ONE (16:09)
[2020-08-24] MEDS ORDERED: morphine 4 MG/ML VIAL IV ONE (16:09)
[2020-08-24] MEDS ORDERED: CIPROFLOXACIN 0.3% OPHTH DROPS BOTTLE OD ONE (16:14)
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
[2020-08-24 16:40] LABS: POC Blood Urea Nitrogen 16 mg/dL (6-20); POC CO2 22 mmol/L (22-30); POC Calcium, Ionized 1.24 mmEq/L (1.16-1.32); POC Chloride 103 mEq/L (96-108); POC Creatinine 0.7 mg/dL (0.6-1.2); POC Glucose, Random 145 mg/dL (70-105); POC Hematocrit 36 % (36-48); POC Potassium 4.8 mEql/L (3.3-5.1); POC Sodium 138 mEq/L (133-145)
--- NOTE | 2020-08-24 17:00 | Cat Scan Report ---
CLINICAL INFORMATION: Trauma COMPARISON: Head CT 06/14/2019 TECHNIQUE: 2.5 mm helical slices were obtained in the skull base to vertex. Following reconstruction, axial reformatted images were reviewed at bone and parenchymal windows. The exam was performed using radiation dose optimization techniques including, but not limited to, automated exposure control, adjustment of the mA and/or kV according to patient size and use of iterative reconstruction technique. FINDINGS: The ventricles, sulci, fissures, and cisterns are symmetrically enlarged compatible with mild age-related atrophy. There is no subdural hemorrhage or other extra-axial fluid collection appreciated. Mild patchy chronic ischemic changes within the cerebral white matter are typical for age. There is no intracerebral hemorrhage, mass effect or edema. Bone windows show no fracture. Mild subluxation of the right TMJ with associated degeneration noted. IMPRESSION: Mild atrophy and patchy chronic ischemic changes in the cerebral white matter expected for age. There is no intracerebral hemorrhage or posttraumatic change. No change2 Subluxation right TMJ with TMJ degeneration. Interpreted and Authenticated by: Marco Esposito 08/24/20
--- NOTE | 2020-08-24 17:07 | Cat Scan Report ---
CLINICAL INFORMATION: Trauma COMPARISON: Cervical spine CT 06/14/2019 TECHNIQUE: 0.625 mm helical slices were obtained from the skull base through the superior T2 end plate, and following reconstruction, 2.5 mm sagittal, coronal and axial reformations were then processed. The exam was reviewed at bone and soft tissue windows. The exam was performed using radiation dose optimization techniques including, but not limited to, automated exposure control, adjustment of the mA and/or kV according to patient size and use of iterative reconstruction technique. FINDINGS: There is straightening of lordotic curve suggesting muscle spasm - stable from prior film. Solid anterior C6-7 fusion changes noted. No soft tissue abnormality. No fracture identified The C2-3 disc level is normal. At C3-4, mild broad disc spur complex with left-sided asymmetry and facet arthropathy result in moderate left lateral recess/ IV foraminal narrowing potential impinging the exiting left C4 nerve root. Mild central canal stenosis At C4-5, a large broad disc spur complex also with irregular calcification in the adjacent posterior longitudinal ligament results in severe central canal stenosis and compression of the cervical cord. Mild narrowing of the right lateral recess /IV foramen with impingement of the exiting right C5 nerve root. At C5-6, a large broad calcified disc spur complex with calcification of adjacent posterior longitudinal ligament results in severe central canal stenosis and right lateral recess / IV foraminal stenosis with impingement of the exiting right C6 nerve root. At C6-7 fusion site, a small central spur from the posterior disc margin mildly impinges the anterior surface of the cervical cord At C7-T1, a moderate broad disc spur complex with left-sided asymmetry results in mild central canal and moderate left lateralrecess/ IV foraminal narrowing. Impingement of the exiting left C8 nerve root IMPRESSION: 1. No fracture or posttraumatic change 2. 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 This shows slight progression - please see above. 3. C6-7 fusion change is solid Interpreted and Authenticated by: Marco Esposito 08/24/20
[2020-08-24 17:19] LABS: Basophils # (Auto) 0.02 K/mcL (0.00-0.20); Basophils % (Auto) 0.3 % (0.0-2.0); Eosinophils # (Auto) 0.08 K/mcL (0.00-0.70); Eosinophils % (Auto) 1.1 % (0.0-7.0); Hematocrit 36.4 % (36.0-48.0); Hemoglobin 11.9 g/dL (12.0-15.0); Lymphocytes # (Auto) 1.17 K/mcL (1.50-4.80); Lymphocytes % (Auto) 16.7 % (15.0-49.0); Mean Cell Volume 104.9 fL (80.0-100.0); Mean Corpuscular HGB Conc 32.7 g/dL (31.0-36.0); Mean Platelet Volume 8.5 fL (7.4-10.4); Monocytes # (Auto) 0.62 K/mcL (0.10-0.90); Monocytes % (Auto) 8.8 % (1.0-12.0); Neutrophils % (Auto) 73.1 % (38.0-78.0); Platelet Count 192 K/mcL (140-440); RBC 3.47 M/mcL (4.00-5.20); Red Cell Distribution Width 12.7 % (11.5-14.5)
--- NOTE | 2020-08-24 17:20 | XRay Report ---
CLINICAL INFORMATION: FALL COMPARISON: 06/16/2019 FINDINGS: Mild cardiomegaly is unchanged. Mediastinum and pulmonary vessels are normal. Lungs are clear. No effusions. No fracture appreciated. Extensive fusion thoracic and lumbar spine seen as before IMPRESSION: No acute cardiopulmonary or posttraumatic change. Stable Interpreted and Authenticated by: Marco Esposito 08/24/20
--- NOTE | 2020-08-24 17:20 | XRay Report ---
CLINICAL INFORMATION: FALL COMPARISON: 11/09/2015 FINDINGS: Dislocation of the prosthetic right hip is appreciated: The femoral head prosthesis is located posterior superior to the acetabular prostheses. The acetabular prostheses demonstrates more lateral canting and typically seen which may predispose to dislocation. There is mild osseous resorption about the prosthetic acetabulum with methacrylate scattered in the pericapsular soft tissues. Left hip is unremarkable. Both SI joints show mild degeneration. Solid lower lumbar fusion changes noted as before IMPRESSION: Complete dislocation-right total hip prostheses Interpreted and Authenticated by: Marco Esposito 08/24/20
[2020-08-24] MEDS ORDERED: PROPOFOL 200 MG/20 ML VIAL IV ONE (17:29)
--- NOTE | 2020-08-24 18:01 | Emergency Department Note ---
ED Note Addendum Note Addendum: Procedural sedation Please see my separate history and physical for the full presedation assessment. Briefly, the patient has a Mallampati of 3. ASA is 2. I discussed the risks and potential benefits of the sedation with the patient she was agreeable to proceed. She was placed on a classroom monitor end-tidal capnography and supplemental oxygen. She was given a milligram per kilogram of IV propofol via slow IV push and achieve desired level of sedation. The procedure was completed by Dr. Deutsch as detailed separately. Patient did have a brief period of apnea which responded to jaw thrust. Unfortunately, her pulse oximeter was unable to obtain a reliable waveform at that time. She did not cam ve any definite hypoxia. No complications were observed. Following the sedation, the patient recovered to her baseline mental status. Total sedation time was 2 minutes.
--- NOTE | 2020-08-24 18:21 | XRay Report ---
CLINICAL INFORMATION: fall COMPARISON: None. FINDINGS: There appears to be a vague incomplete oblique fracture through the second metatarsal base. Age indeterminate. Osteotomy of the distal first metatarsal and medial first metatarsal head shaving as corrected hallux valgus deformity. Old fracture lateral and medial malleolus and transfixed by plate and screws is incompletely imaged.. Solid congenital fusion of the second DIP and moderate degenerative change in all interphalangeal and second MTP joints appreciated. Mild forefoot soft tissue swelling noted. IMPRESSION: 1. Suspect incomplete hairline fracture through the second metatarsal base. Please correlate with point tenderness in this region. Consider immobilization and repeat film in 10 days 2. Multilevel degeneration. Congenital fusion second PIP. 3. Distal first metatarsal osteotomy and medial metatarsal head shaving which corrects a hallux valgus deformity. 4. Forefoot soft tissue swelling. Interpreted and Authenticated by: Marco Esposito 08/24/20
--- NOTE | 2020-08-24 18:22 | XRay Report ---
CLINICAL INFORMATION: post reduction xray COMPARISON: Reduction x-ray 08/24/2020 1652 hours FINDINGS: Film now shows right total hip prostheses anatomically aligned. Lateral canting of the prosthetic acetabulum may predispose to future dislocation. There is pericapsular ossification and methacrylate appreciated-as previously seen. No fractures. Left hip is normal IMPRESSION: Right hip prostheses now anatomically aligned following reduction. Interpreted and Authenticated by: Marco Esposito 08/24/20
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
[2020-08-24] MEDS ORDERED: ACETAMINOPHEN 325 MG TABLET PO PRN (21:32)
[2020-08-24] MEDS ORDERED: ONDANSETRON 4 MG/2 ML VIAL IV PRN (21:32)
[2020-08-24] MEDS ORDERED: POTASSIUM CHLORIDE 40 MEQ in DEXTROSE 5% IN WATER 500 ML IV PRN (21:32)
[2020-08-24] MEDS ORDERED: POLYETHYLENE GLYCOL 3350 17 GM PACKET PO PRN (21:32)
[2020-08-24] MEDS ORDERED: ONDANSETRON 4 MG ODT TABLET SL PRN (21:32)
[2020-08-24] MEDS ORDERED: NEUTRA PHOS 1 PACKET PO PRN (21:32)
[2020-08-24] MEDS ORDERED: BISACODYL 10 MG SUPP.RECT PR PRN (21:32)
[2020-08-24] MEDS ORDERED: MAGNESIUM SULFATE 2 GM/50 ML BAG IV PRN (21:32)
[2020-08-24] MEDS ORDERED: ACETAMINOPHEN 650 MG/65 ML BAG IV PRN (21:32)
[2020-08-24] MEDS ORDERED: guaiFENesin/CODEINE 10 ML UDC PO PRN (21:32)
[2020-08-24] MEDS: 0.9 % SODIUM CHLORIDE 1,000 ML IV SCH (21:49)
[2020-08-24] MEDS: DOCUSATE SODIUM 100 MG CAPSULE PO SCH (21:54)
[2020-08-24] MEDS: SENNOSIDES/DOCUSATE SODIUM 1 TAB TABLET PO SCH (21:54)
[2020-08-24] MEDS ORDERED: cefTRIAXone 2 GM VIAL ONE (21:56)
[2020-08-24] MEDS: CIPROFLOXACIN 0.3% OPHTH DROPS BOTTLE OU SCH ×2 (22:00→23:54)
[2020-08-24] MEDS: cefTRIAXone 2 GM in DEXTROSE 5% IN WATER 50 ML IV SCH (22:07)
[2020-08-24] MEDS: HEPARIN 5,000 UNIT/ML VIAL SQ SCH (22:10)
[2020-08-24] MEDS: HYDROcodone/APAP 5/325MG TABLET PO PRN (23:03)
[2020-08-24] MEDS: 0.9 % SODIUM CHLORIDE 10 ML SYRINGE IV SCH (23:03)
[2020-08-24] MEDS: MELATONIN 3 MG TABLET PO PRN (23:03)
[2020-08-24] MEDS: LACTATED RINGERS 1,000 ML IV SCH (23:47)
[2020-08-25] MEDS: CIPROFLOXACIN 0.3% OPHTH DROPS BOTTLE OU SCH ×12 (01:49→23:35)
[2020-08-25] MEDS: HYDROcodone/APAP 5/325MG TABLET PO PRN ×4 (03:48→22:30)
[2020-08-25] MEDS: 0.9 % SODIUM CHLORIDE 10 ML SYRINGE IV SCH ×4 (03:49→22:00)
[2020-08-25] MEDS: DOCUSATE SODIUM 100 MG CAPSULE PO SCH ×2 (08:40→20:45)
[2020-08-25] MEDS: HEPARIN 5,000 UNIT/ML VIAL SQ SCH ×2 (08:40→20:46)
[2020-08-25] MEDS: THIAMINE 100 MG TABLET PO SCH (08:41)
[2020-08-25 08:51] LABS: Basophils # (Auto) 0.01 K/mcL (0.00-0.20); Basophils % (Auto) 0.2 % (0.0-2.0); Eosinophils # (Auto) 0.24 K/mcL (0.00-0.70); Eosinophils % (Auto) 4.3 % (0.0-7.0); Hematocrit 33.3 % (36.0-48.0); Hemoglobin 10.7 g/dL (12.0-15.0); Lymphocytes # (Auto) 1.17 K/mcL (1.50-4.80); Lymphocytes % (Auto) 21.1 % (15.0-49.0); Mean Cell Volume 106.7 fL (80.0-100.0); Mean Corpuscular HGB Conc 32.1 g/dL (31.0-36.0); Mean Platelet Volume 8.7 fL (7.4-10.4); Monocytes # (Auto) 0.55 K/mcL (0.10-0.90); Monocytes % (Auto) 9.9 % (1.0-12.0); Neutrophils % (Auto) 64.5 % (38.0-78.0); Platelet Count 198 K/mcL (140-440); RBC 3.12 M/mcL (4.00-5.20); WBC 5.5 K/mcL (4.5-11.0)
[2020-08-25 09:10] LABS: ALT/SGPT 16 U/L (<40); AST/SGOT 32 U/L (<32); Albumin 3.2 gm/dL (3.2-5.2); Albumin/Globulin Ratio 1.4 (1.0-2.3); Alkaline Phosphatase 74 U/L (39-117); Bilirubin,Direct < 0.2 mg/dL (0-0.3); Bilirubin,Total 0.2 mg/dL (0.1-1.0); Blood Urea Nitrogen 13 mg/dL (8-23); Calcium 8.4 mg/dL (8.6-10.4); Carbon Dioxide 24 mmol/L (22-30); Chloride 104 mmol/L (96-108); Globulin 2.3 gm/dL (2.2-3.7); Glomerular Filtration Rate 88; Glucose 121 mg/dL (70-105); Lactate Dehydrogenase 386 U/L (135-225); Phosphorous 3.6 mg/dL (2.5-4.5); Triglycerides 113 mg/dL (<150); Uric Acid 4.5 mg/dL (2.5-8.0)
--- NOTE | 2020-08-25 11:51 | Internal Med Progress Note ---
SUBJECTIVE Subjective Patient information: Note initiated : 08/25/20 at 11:49 am Service Date, if different from initiated Date: [] Patient: Janee Orozco a 69 y/o F admitted on 08/24/20 for fall. Chief Complaint: [] Interval history: Ms. Orozco is a 69 year old F with a history of anxiety disorder/neuropathy/degenerative joint disease/HLD who presents to the ER after sustaining multiple falls over the last few days. She was discovered today on the floor and sustained an unwitnessed fall at an unclear time. She is brought in the ER for evaluation. Initial work-up was consistent with right hip dislocation and underwent reduction. CK 1900/evidence of volume depletion. Patient initial GCS 7, unable to provide a meaningful history and to the course of events leading to fall. Per paramedics she was smearing feces and urine when they discovered her laying on the floor. Hospitalist service was consulted in light of above events and the need for hospitalization/transition to rehab. At the time of my evaluation no family members present. Most of the history is obtained from review of medical records and ER physician. Patient endorses to recurrent fall getting off balance and states she has been clumsy but denies lightheadedness dizziness or loss of consciousness during falls. 08/25-patient doing better. No overnight fever chills. Stable hemodynamics. White count 5.5, improving weakness, ongoing nutrition support. Currently on knee immobilizer to prevent recurrent dislocation hip. Conjunctivitis improving. No telemetry events. Carotid ultrasound/echo pending Constitutional Vitals: Vital Signs Temp Pulse Resp BP Pulse Ox 98.4 F 82 16 134/79 95 08/25/20 11:26 08/25/20 11:26 08/25/20 11:26 08/25/20 11:26 08/25/20 11:26 Period Temp Pulse Resp BP Sys/Oconnor Pulse Ox Last 24 Hr 97.6 F-98.8 F 54-96 13-22 84-149/55-84 86-100 Intake and Output 08/24/20 08/25/20 08/25/20 21:59 05:59 13:59 Intake Total 1000 1200 Output Total 501 Balance 1000 699 Weight 92.079 kg 88.314 kg alert but pleasantly confused Nonlabored breathing No anxiety Resting comfortably. Intake & Output: Intake & Output 08/24/20 08/25/20 08/25/20 21:59 05:59 13:59 Intake Total 1000 1200 Output Total 501 Balance 1000 699 Weight 92.079 kg 88.314 kg Intake: IV 1000 1050 Sodium Chloride 0.9% 1,000 ml @ 1000 1000 Wide Open IV BOLUS [facility] Rx#: [id number] Rocephin 2 gm In Dextrose 5% in 50 Water 50 ml @ 100 mls/hr IV Q24H [facility] Rx#:[id number] Oral 150 Output: Urine Catheter Amount 500 # of times incontinent of urine 1 Other: Meal banana Percent of Meal Consumed 100% Feeding Ability Independent Urine Appearance Clear Straight Clear Urine Color Dark Yellow Straight Dark Yellow Stool Size Smear Stool Color Brown Stool Consistency Loose # of times incontinent of 1 Bowels OBJ DATA Labs CBC & Chem 7: 08/25/20 06:21 08/25/20 06:21 Labs: Abnormal Lab Results 08/25/20 08/25/20 08/24/20 06:21 06:21 16:22 RBC 3.12 L Hgb 10.7 L Hct 33.3 L MCV 106.7 H MCH 34.3 H Lymph # (Auto) 1.17 L Glucose 121 H POC Glucose Calcium 8.4 L AST 32 H Lactate Dehydrogenase 386 H Total Creatine Kinase 1899 H Total Protein 5.5 L 08/24/20 08/24/20 16:22 16:22 RBC 3.47 L Hgb 11.9 L Hct MCV 104.9 H MCH 34.3 H Lymph # (Auto) 1.17 L Glucose POC Glucose 145 H Calcium AST Lactate Dehydrogenase Total Creatine Kinase Total Protein Meds: Medications Acetaminophen (Acetaminophen 325 Mg Tablet) 650 mg PO Q4-6HP PRN; Protocol PRN Reason: Per Pain Protocol/Fever > 101 Hydrocodone Bitart/Acetaminophen (Hydrocodone/Apap 5/325mg Tablet) 1 - 2 tab PO Q4HP PRN; Protocol PRN Reason: Per Pain Protocol Last Admin: 08/25/20 08:40 Dose: 1 tab Documented by: Bisacodyl (Bisacodyl 10 Mg Supp.Rect) 10 mg HI Q2-3DAYS PRN PRN Reason: Constipation Ciprofloxacin (Ciprofloxacin 0.3% Ophth Drops Bottle) 2 gtt OU Q2 [facility] Last Admin: 08/25/20 10:37 Dose: 1 dose Documented by: Docusate Sodium (Docusate Sodium 100 Mg Capsule) 100 mg PO BID [facility] Last Admin: 08/25/20 08:40 Dose: 100 mg Documented by: Guaifenesin/Codeine Phosphate (Guaifenesin/Codeine 10 Ml Udc) 10 ml PO Q4HP PRN PRN Reason: Cough Heparin Sodium (Porcine) (Heparin 5,000 Unit/Ml Vial) 5,000 unit SQ Q12 [facility] Last Admin: 08/25/20 08:40 Dose: 5,000 unit Documented by: Lactated Ringer's (Lactated Ringers) 1,000 mls @ 75 mls/hr IV .[id number] [facility] Stop: 08/26/20 13:31 Last Admin: 08/24/20 23:47 Dose: 75 mls/hr Documented by: Potassium Chloride 40 meq/ (Dextrose) 520 mls @ 130 mls/hr IV UD PRN PRN Reason: K+ = or < 3.5 Acetaminophen (Ofirmev) 650 mg in 65 mls @ 130 mls/hr IV Q6HP PRN; Protocol PRN Reason: Per Pain Protocol/Fever > 101 Magnesium Sulfate (Magnesium Sulfate) 2 gm in 50 mls @ 50 mls/hr IV UD PRN PRN Reason: MG = or < 1.7 Sodium Chloride (Sodium Chloride 0.9%) 1,000 mls @ 0 mls/hr IV BOLUS [facility] Last Infusion: 08/25/20 01:22 Dose: Infused Documented by: Ceftriaxone Sodium 2 gm/ (Dextrose) 50 mls @ 100 mls/hr IV Q24H [facility]; Protocol Last Infusion: 08/25/20 01:22 Dose: Infused Documented by: Melatonin (Melatonin 3 Mg Tablet) 3 mg PO HSP PRN PRN Reason: Insomnia Last Admin: 08/24/20 23:03 Dose: 3 mg Documented by: Ondansetron HCl (Ondansetron 4 Mg Odt Tablet) 4 mg SL Q4-6HP PRN; Protocol PRN Reason: Nausea And Vomiting Ondansetron HCl (Ondansetron 4 Mg/2 Ml Vial) 4 mg IV Q4-6HP PRN; Protocol PRN Reason: Nausea And Vomiting Polyethylene Glycol (Polyethylene Glycol 3350 17 Gm Packet) 17 gm PO DAILYP PRN PRN Reason: Constipation Potassium/Phosphorus/Sodium (Neutra Phos 1 Packet) 2 packet PO DAILY PRN PRN Reason: PHOS <2.5 Senna/Docusate Sodium (Sennosides/Docusate Sodium 1 Tab Tablet) 1 tab PO HS [facility] Last Admin: 08/24/20 21:54 Dose: Not Given Documented by: Sodium Chloride (0.9 % Sodium Chloride 10 Ml Syringe) 10 ml IV Q8 [facility] Last Admin: 08/25/20 06:01 Dose: Not Given Documented by: Thiamine HCl (Thiamine 100 Mg Tablet) 100 mg PO DAILY [facility] Last Admin: 08/25/20 08:41 Dose: 100 mg Documented by: A/P Narrative A/P Narrative: * Recurrent falls-rule out vertebrobasilar insufficiency/arrhythmia, initiate cardiac monitoring. Check orthostatics. Echocardiogram, polypharmacy with opioids and benzodiazepine may be contributing to falls * Rhabdomyolysis improving on crystalloids * Right conjunctivitis improving on antibiotic drops/regular cleansing * Right hip dislocation status post reduction in ER. Currently on a knee immobilizer to prevent recurrent dislocation * Chronic pain continue home medication including hydrocodone * Anxiety continue Cymbalta * Hyperlipidemia continue statin * GERD H2 antagonist * Prophylaxis Heparin Plan * Continue supportive treatment * Echocardiogram/cardiac monitoring/Doppler VB system, orthostatics * Pre-existing medical condition management as above * PT OT nutrition support * Case management coordinate SNF transfer Time Spent With Patient Time: Total time spent is greater than 50% in coordination of care (as documented) at patient's floor/unit and/or counseling patient: QUALITY VTE Deep Vein Thrombosis/Pulmonary Embolism Present on Admission: No
[2020-08-25] MEDS: LACTATED RINGERS 1,000 ML IV SCH (12:16)
[2020-08-25] MEDS: cefTRIAXone 2 GM in DEXTROSE 5% IN WATER 50 ML IV SCH (14:23)
--- NOTE | 2020-08-25 14:28 | Ultrasound Report ---
CLINICAL INFORMATION: Syncope COMPARISON: None. TECHNIQUE: Spectral Doppler velocity measurements were obtained in the proximal, mid and distal common and internal carotid, both vertebral and proximal external carotid arteries bilaterally. Supplemental color and power Doppler imaging was also obtained to optimize stenosis detection. In reporting, any internal carotid stenosis was indirectly quantified comparing the distal internal carotid velocity. For ratio comparison, the internal carotid artery, at the level of stenosis, was utilized in the numerator and the normal distal internal carotid artery velocity was utilized as the denominator. Velocities are validated with angiographic measurements extrapolated from diameter data - as defined by the Society of Radiologists in Ultrasound Consensus Conference .Radiology 2003; 229; 340 - 346. FINDINGS: See worksheet by the technologist for velocities in PACS IMPRESSION: Both common, external and internal carotid arteries are widely patent. There is calcific and fibrofatty plaque in both carotid bifurcations. Antegrade flow present in both vertebral arteries. Please correlate with CTA CT Angiography or MRA MR Angiography if surgery is contemplated. Interpreted and Authenticated by: Marco Esposito 08/25/20
[2020-08-25] MEDS: SENNOSIDES/DOCUSATE SODIUM 1 TAB TABLET PO SCH (20:45)
[2020-08-25] MEDS: 0.9 % SODIUM CHLORIDE 1,000 ML IV SCH (21:58)
[2020-08-25] MEDS: MELATONIN 3 MG TABLET PO PRN (22:31)
[2020-08-26] MEDS: CIPROFLOXACIN 0.3% OPHTH DROPS BOTTLE OU SCH ×12 (01:51→23:55)
[2020-08-26] MEDS: LACTATED RINGERS 1,000 ML IV SCH (03:15)
[2020-08-26] MEDS: 0.9 % SODIUM CHLORIDE 10 ML SYRINGE IV SCH ×3 (04:27→20:45)
[2020-08-26 06:52] LABS: Basophils # (Auto) 0.01 K/mcL (0.00-0.20); Basophils % (Auto) 0.2 % (0.0-2.0); Eosinophils # (Auto) 0.26 K/mcL (0.00-0.70); Eosinophils % (Auto) 4.7 % (0.0-7.0); Hematocrit 34.9 % (36.0-48.0); Hemoglobin 11.1 g/dL (12.0-15.0); Lymphocytes # (Auto) 0.98 K/mcL (1.50-4.80); Lymphocytes % (Auto) 17.8 % (15.0-49.0); Mean Cell Volume 108.7 fL (80.0-100.0); Mean Corpuscular HGB Conc 31.8 g/dL (31.0-36.0); Mean Platelet Volume 8.6 fL (7.4-10.4); Monocytes % (Auto) 10.9 % (1.0-12.0); Neutrophils % (Auto) 66.4 % (38.0-78.0); Platelet Count 187 K/mcL (140-440); RBC 3.21 M/mcL (4.00-5.20); Red Cell Distribution Width 12.9 % (11.5-14.5); WBC 5.5 K/mcL (4.5-11.0)
[2020-08-26 07:28] LABS: ALT/SGPT 17 U/L (<40); AST/SGOT 30 U/L (<32); Albumin 2.9 gm/dL (3.2-5.2); Albumin/Globulin Ratio 1.1 (1.0-2.3); Alkaline Phosphatase 79 U/L (39-117); Bilirubin,Direct < 0.2 mg/dL (0-0.3); Bilirubin,Total 0.3 mg/dL (0.1-1.0); Blood Urea Nitrogen 7 mg/dL (8-23); Calcium 8.6 mg/dL (8.6-10.4); Carbon Dioxide 24 mmol/L (22-30); Chloride 102 mmol/L (96-108); Globulin 2.6 gm/dL (2.2-3.7); Glomerular Filtration Rate 92; Glucose 129 mg/dL (70-105); Lactate Dehydrogenase 453 U/L (135-225); Phosphorous 3.2 mg/dL (2.5-4.5); Triglycerides 108 mg/dL (<150)
[2020-08-26] MEDS: THIAMINE 100 MG TABLET PO SCH (08:50)
[2020-08-26] MEDS: cefTRIAXone 2 GM in DEXTROSE 5% IN WATER 50 ML IV SCH (08:50)
[2020-08-26] MEDS: HYDROcodone/APAP 5/325MG TABLET PO PRN ×2 (08:52→17:48)
[2020-08-26] MEDS: HEPARIN 5,000 UNIT/ML VIAL SQ SCH ×2 (08:53→20:43)
[2020-08-26] MEDS: DOCUSATE SODIUM 100 MG CAPSULE PO SCH ×2 (09:19→20:43)
--- NOTE | 2020-08-26 12:43 | Internal Med Progress Note ---
SUBJECTIVE Subjective Patient information: Note initiated : 08/26/20 at 12:43 pm Service Date, if different from initiated Date: [] Patient: Janee Orozco a 69 y/o F admitted on 08/24/20 for fall. Chief Complaint: [] Interval history: Ms. Orozco is a 69 year old F with a history of anxiety disorder/neuropathy/degenerative joint disease/HLD who presents to the ER after sustaining multiple falls over the last few days. She was discovered today on t he floor and sustained an unwitnessed fall at an unclear time. She is brought in the ER for evaluation. Initial work-up was consistent with right hip dislocation and underwent reduction. CK 1900/evidence of volume depletion. Patient initial GCS 7, unable to provide a meaningful history and to the course of events leading to fall. Per paramedics she was smearing feces and urine when they discovered her laying on the floor. Hospitalist service was consulted in light of above events and the need for hospitalization/transition to rehab. At the time of my evaluation no family members present. Most of the history is obtained from review of medical records and ER physician. Patient endorses to recurrent fall getting off balance and states she has been clumsy but denies lightheadedness dizziness or loss of consciousness during falls. 08/25-patient doing better. No overnight fever chills. Stable hemodynamics. White count 5.5, improving weakness, ongoing nutrition support. Currently on knee immobilizer to prevent recurrent dislocation hip. Conjunctivitis improving. No telemetry events. Carotid ultrasound/echo pending 08/26-patient doing well. No overnight events. Remains weak and fatigued. Ongoing therapy/nutrition support. Improved hemodynamics. Blood sugars at goal. Renal function stable Constitutional Vitals: Vital Signs Temp Pulse Resp BP Pulse Ox 98.9 F 80 18 146/81 90 08/26/20 11:59 08/26/20 11:59 08/26/20 11:59 08/26/20 11:59 08/26/20 11:59 Period Temp Pulse Resp BP Sys/[place]nor Pulse Ox Last 24 Hr 97.9 F-99 F 66-91 12-20 127-161/71-85 84-99 Intake and Output 08/25/20 08/26/20 08/26/20 21:59 05:59 13:59 Intake Total 410 1300 0 Output Total 1 1 Balance 409 1299 0 Weight 90.582 kg Alert and respond to commands No anxiety Feels weak Nondistended nontender abdomen Intake & Output: Intake & Output 08/25/20 08/26/20 08/26/20 21:59 05:59 13:59 Intake Total 410 1300 0 Output Total 1 1 Balance 409 1299 0 Weight 90.582 kg Intake: IV 50 1000 Lactated Ringers 1,000 ml @ 75 1000 mls/hr IV .[id number] [facility] Rx#: [id number] Rocephin 2 gm In Dextrose 5% in 50 Water 50 ml @ 100 mls/hr IV Q24H [facility] Rx#:[id number] Oral 360 300 0 Output: # of times incontinent of urine 1 1 Other: Meal Dinner Breakfast Percent of Meal Consumed 25% 0% Stool Size Smear Stool Color Brown OBJ DATA Labs CBC & Chem 7: 08/26/20 05:18 08/26/20 05:18 Labs: Abnormal Lab Results 08/26/20 08/26/20 08/25/20 05:18 05:18 06:21 RBC 3.21 L Hgb 11.1 L Hct 34.9 L MCV 108.7 H MCH 34.6 H Lymph # (Auto) 0.98 L BUN 7 L Glucose 129 H 121 H POC Glucose Calcium 8.4 L AST 32 H Lactate Dehydrogenase 453 H 386 H Total Creatine Kinase Total Protein 5.5 L 5.5 L Albumin 2.9 L 08/25/20 08/24/20 08/24/20 06:21 16:22 16:22 RBC 3.12 L Hgb 10.7 L Hct 33.3 L MCV 106.7 H MCH 34.3 H Lymph # (Auto) 1.17 L BUN Glucose POC Glucose 145 H Calcium AST Lactate Dehydrogenase Total Creatine Kinase 1899 H Total Protein Albumin 08/24/20 16:22 RBC 3.47 L Hgb 11.9 L Hct MCV 104.9 H MCH 34.3 H Lymph # (Auto) 1.17 L BUN Glucose POC Glucose Calcium AST Lactate Dehydrogenase Total Creatine Kinase Total Protein Albumin Meds: Medications Acetaminophen (Acetaminophen 325 Mg Tablet) 650 mg PO Q4-6HP PRN; Protocol PRN Reason: Per Pain Protocol/Fever > 101 Last Admin: 08/25/20 20:45 Dose: 650 mg Documented by: Hydrocodone Bitart/Acetaminophen (Hydrocodone/Apap 5/325mg Tablet) 1 - 2 tab PO Q4HP PRN; Protocol PRN Reason: Per Pain Protocol Last Admin: 08/26/20 08:52 Dose: 2 tab Documented by: Bisacodyl (Bisacodyl 10 Mg Supp.Rect) 10 mg MS Q2-3DAYS PRN PRN Reason: Constipation Ciprofloxacin (Ciprofloxacin 0.3% Ophth Drops Bottle) 2 gtt OU Q2 [facility] Last Admin: 08/26/20 10:00 Dose: 1 dose Documented by: Docusate Sodium (Docusate Sodium 100 Mg Capsule) 100 mg PO BID [facility] Last Admin: 08/26/20 09:19 Dose: Not Given Documented by: Guaifenesin/Codeine Phosphate (Guaifenesin/Codeine 10 Ml Udc) 10 ml PO Q4HP PRN PRN Reason: Cough Heparin Sodium (Porcine) (Heparin 5,000 Unit/Ml Vial) 5,000 unit SQ Q12 [facility] Last Admin: 08/26/20 08:53 Dose: 5,000 unit Documented by: Lactated Ringer's (Lactated Ringers) 1,000 mls @ 75 mls/hr IV .[id number] [facility] Stop: 08/26/20 13:31 Last Admin: 08/26/20 03:15 Dose: 75 mls/hr Documented by: Potassium Chloride 40 meq/ (Dextrose) 520 mls @ 130 mls/hr IV UD PRN PRN Reason: K+ = or < 3.5 Acetaminophen (Ofirmev) 650 mg in 65 mls @ 130 mls/hr IV Q6HP PRN; Protocol PRN Reason: Per Pain Protocol/Fever > 101 Magnesium Sulfate (Magnesium Sulfate) 2 gm in 50 mls @ 50 mls/hr IV UD PRN PRN Reason: MG = or < 1.7 Ceftriaxone Sodium 2 gm/ (Dextrose) 50 mls @ 100 mls/hr IV Q24H [facility]; Protocol Last Admin: 08/26/20 08:50 Dose: 100 mls/hr Documented by: Melatonin (Melatonin 3 Mg Tablet) 3 mg PO HSP PRN PRN Reason: Insomnia Ondansetron HCl (Ondansetron 4 Mg Odt Tablet) 4 mg SL Q4-6HP PRN; Protocol PRN Reason: Nausea And Vomiting Ondansetron HCl (Ondansetron 4 Mg/2 Ml Vial) 4 mg IV Q4-6HP PRN; Protocol PRN Reason: Nausea And Vomiting Polyethylene Glycol (Polyethylene Glycol 3350 17 Gm Packet) 17 gm PO DAILYP PRN PRN Reason: Constipation Potassium/Phosphorus/Sodium (Neutra Phos 1 Packet) 2 packet PO DAILY PRN PRN Reason: PHOS <2.5 Senna/Docusate Sodium (Sennosides/Docusate Sodium 1 Tab Tablet) 1 tab PO HS [facility] Last Admin: 08/25/20 20:45 Dose: 1 tab Documented by: Sodium Chloride (0.9 % Sodium Chloride 10 Ml Syringe) 10 ml IV Q8 [facility] Last Admin: 08/26/20 04:27 Dose: Not Given Documented by: Thiamine HCl (Thiamine 100 Mg Tablet) 100 mg PO DAILY [facility] Last Admin: 08/26/20 08:50 Dose: 100 mg Documented by: A/P Narrative A/P Narrative: * Recurrent falls-normal carotid ultrasound, no evidence of arrhythmia on telemetry, echo pending, suspect polypharmacy with opioids and benzodiazepine possibly contributing to falls * Rhabdomyolysis resolved with crystalloids * Right conjunctivitis -resolved on antibiotic drops/regular cleansing * Right hip dislocation status post reduction in ER. Currently on a knee immobilizer to prevent recurrent dislocation * Chronic pain continue home medication including hydrocodone * Anxiety continue Cymbalta * Hyperlipidemia continue statin * GERD H2 antagonist * Prophylaxis Heparin Plan * Continue supportive treatment * Echocardiogram awaited * Pre-existing medical condition management as above * PT OT nutrition support * Case management coordinate SNF transfer Time Spent With Patient Time: Total time spent is greater than 50% in coordination of care (as docu mented) at patient's floor/unit and/or counseling patient: QUALITY VTE Deep Vein Thrombosis/Pulmonary Embolism Present on Admission: No
[2020-08-26] MEDS ORDERED: HYDROcodone/APAP 5/325MG TABLET PO PRN (13:15)
--- NOTE | 2020-08-26 13:53 | XRay Report ---
CLINICAL INFORMATION: Interval Change COMPARISON: 08/24/2020 FINDINGS: Equivocal cardiomegaly is unchanged. Mediastinum and pulmonary vessels are normal. Minor bibasilar atelectasis noted. No infiltrates or effusions. Right diaphragm mildly elevated as before. Fusion changes in the thoracolumbar spine as previously described IMPRESSION: No acute disease. Interpreted and Authenticated by: Marco Esposito 08/26/20
[2020-08-26] MEDS: GABAPENTIN 300 MG CAPSULE PO SCH ×3 (15:55→20:42)
[2020-08-26] MEDS: DULoxetine 30 MG CAPSULE PO SCH (20:42)
[2020-08-26] MEDS: SENNOSIDES/DOCUSATE SODIUM 1 TAB TABLET PO SCH (20:43)
[2020-08-26] MEDS ORDERED: MODAFINIL 200 MG TABLET PO SCH (21:00)
[2020-08-26] MEDS ORDERED: traZODone HCL 50 MG TABLET PO SCH (21:00)
[2020-08-27] MEDS: CIPROFLOXACIN 0.3% OPHTH DROPS BOTTLE OU SCH ×7 (02:06→14:20)
[2020-08-27] MEDS: HYDROcodone/APAP 5/325MG TABLET PO PRN ×3 (03:40→12:01)
[2020-08-27 06:50] LABS: Basophils # (Auto) 0.01 K/mcL (0.00-0.20); Basophils % (Auto) 0.2 % (0.0-2.0); Eosinophils # (Auto) 0.21 K/mcL (0.00-0.70); Eosinophils % (Auto) 4.4 % (0.0-7.0); Hemoglobin 10.4 g/dL (12.0-15.0); Lymphocytes # (Auto) 0.95 K/mcL (1.50-4.80); Mean Cell Volume 107.1 fL (80.0-100.0); Mean Corpuscular HGB Conc 31.5 g/dL (31.0-36.0); Mean Platelet Volume 8.5 fL (7.4-10.4); Monocytes # (Auto) 0.55 K/mcL (0.10-0.90); Monocytes % (Auto) 11.6 % (1.0-12.0); Neutrophils % (Auto) 63.8 % (38.0-78.0); Platelet Count 177 K/mcL (140-440); RBC 3.08 M/mcL (4.00-5.20); Red Cell Distribution Width 12.9 % (11.5-14.5); WBC 4.8 K/mcL (4.5-11.0)
[2020-08-27] MEDS: 0.9 % SODIUM CHLORIDE 10 ML SYRINGE IV SCH ×2 (07:52→14:21)
[2020-08-27 07:54] LABS: ALT/SGPT 14 U/L (<40); AST/SGOT 19 U/L (<32); Albumin 2.8 gm/dL (3.2-5.2); Albumin/Globulin Ratio 1.2 (1.0-2.3); Alkaline Phosphatase 68 U/L (39-117); Bilirubin,Direct < 0.2 mg/dL (0-0.3); Bilirubin,Total 0.2 mg/dL (0.1-1.0); Blood Urea Nitrogen 7 mg/dL (8-23); Calcium 8.4 mg/dL (8.6-10.4); Carbon Dioxide 26 mmol/L (22-30); Chloride 103 mmol/L (96-108); Globulin 2.4 gm/dL (2.2-3.7); Glomerular Filtration Rate 98; Glucose 130 mg/dL (70-105); Lactate Dehydrogenase 366 U/L (135-225); Phosphorous 3.7 mg/dL (2.5-4.5); Triglycerides 101 mg/dL (<150); Uric Acid 3.5 mg/dL (2.5-8.0)
[2020-08-27] MEDS ORDERED: SIMVASTATIN 20 MG TABLET PO SCH (09:00)
[2020-08-27] MEDS: HEPARIN 5,000 UNIT/ML VIAL SQ SCH (09:21)
[2020-08-27] MEDS: THIAMINE 100 MG TABLET PO SCH (09:22)
[2020-08-27] MEDS: cefTRIAXone 2 GM in DEXTROSE 5% IN WATER 50 ML IV SCH (09:22)
[2020-08-27] MEDS: GABAPENTIN 300 MG CAPSULE PO SCH (09:22)
[2020-08-27] MEDS: DULoxetine 30 MG CAPSULE PO SCH (09:22)
[2020-08-27] MEDS: DOCUSATE SODIUM 100 MG CAPSULE PO SCH (09:22)
[2020-08-27] MEDS: MODAFINIL 200 MG TABLET PO SCH ×2 (09:22→11:55)
[2020-08-27] MEDS ORDERED: POTASSIUM CHLORIDE 20 MEQ TABLET PO PRN (10:01)
--- NOTE | 2020-08-27 11:36 | Discharge Summary ---
Discharge Provider Provider Patient information: Note initiated : 08/27/20 at 11:33 am Service Date, if different from initiated Date: [] Patient: Janee Orozco a 69 y/o F admitted on 08/24/20 for fall. Discharge diagnosis * Recurrent falls-normal carotid ultrasound, no evidence of arrhythmia on telemetry, echo EF 70% no significant valve abnormality, suspect polypharmacy with opioids and benzodiazepine possibly contributing to falls. Recommend PCP to gradually taper existing medications to minimize risk of falls * Rhabdomyolysis resolved with crystalloids * Right conjunctivitis -resolved on antibiotic drops/regular cleansing * Right hip dislocation status post reduction in ER. Currently on a knee immobilizer to prevent recurrent dislocation * Chronic pain continue home medication including hydrocodone * Anxiety continue Cymbalta * Hyperlipidemia continue statin * GERD H2 antagonist Brief hospital course Ms. Orozco is a 69 year old F with a history of anxiety disorder/neuropathy/degenerative joint disease/HLD who presents to the ER after sustaining multiple falls over the last few days. She was discovered today on the floor and sustained an unwitnessed fall at an unclear time. She is brought in the ER for evaluation. Initial work-up was consistent with right hip dislocation and underwent reduction. CK 1900/evidence of volume depletion. Patient initial GCS 7, unable to provide a meaningful history and to the course of events leading to fall. Per paramedics she was smearing feces and urine when they discovered her laying on the floor. Hospitalist service was consulted in light of above events and the need for hospitalization/transition to rehab. At the time of my evaluation no family members present. Most of the history is obtained from review of medical records and ER physician. Patient endorses to recurrent fall getting off balance and states she has been clumsy but denies lightheadedness dizziness or loss of consciousness during falls. 08/25-patient doing better. No overnight fever chills. Stable hemodynamics. White count 5.5, improving weakness, ongoing nutrition support. Currently on knee immobilizer to prevent recurrent dislocation hip. Conjunctivitis improving. No telemetry events. Carotid ultrasound/echo pending 08/26-patient doing well. No overnight events. Remains weak and fatigued. Ongoing therapy/nutrition support. Improved hemodynamics. Blood sugars at goal. Renal function stable 08/27-patient feels a lot better. Ambulating and tolerating therapies. Tolerating diet. Feels Ready for discharge. Discharging to SNF. Continue aggressive PT OT/gait and safety eval and training. Continue nutrition support. Maintain precautions for recurrent hip dislocation. Date of admission: 08/24/20 21:10 Discharge date: 08/27/20 Primary care physician: Radha Arce Consults: 08/24/20 Consult to Physician [CONS] Stat Comment: Consulting Provider: Oz Pompa Reason For Exam: Physician to Consult Discharge Meds Discharge Medications Home Medications gabapentin 300 mg capsule 600 mg PO TID 30 Days #180 cap 08/20/15 [Rx Confirmed 08/25/20 Last Taken 02/16/19] docusate sodium 100 mg PO BID 04/15/18 [History Confirmed 08/27/20 Last Taken 02/12/19] duloxetine [Cymbalta] 30 mg PO BID 04/15/18 [History Confirmed 08/25/20 Last Taken 02/16/19] eflhmak-ippyrzeatv-ASO-caff 1 cap PO Q6HP PRN #7 cap 06/18/19 [Rx Confirmed 08/27/20 Last Taken Unknown] modafinil 200 mg PO BID #10 tab 06/18/19 [Rx Confirmed 08/25/20 Last Taken Unknown] tizanidine 4 - 8 mg PO TIDP PRN 06/18/19 [History Confirmed 08/25/20 Last Taken Unknown] cholecalciferol (vitamin D3) 50 mcg (2,000 unit) capsule 50 mcg PO QDAY 07/12/20 [History Confirmed 08/27/20 Last Taken Unknown] cyanocobalamin (vitamin B-12) 5,000 mcg capsule 5,000 mcg PO QDAY 07/12/20 [History Confirmed 08/27/20 Last Taken Unknown] krill oil 1,000 mg-om3 130 mg-dha 40 mg-epa 80 wi-oi6-sdu-astax cap 1 cap PO DAILY 07/12/20 [History Confirmed 08/27/20 Last Taken Unknown] lactobacillus combination no.9 4 billion cell capsule 4,000 mmu cells PO QDAY 07/12/20 [History Confirmed 08/27/20 Last Taken Unknown] meclizine 25 mg tablet 25 mg PO PRN PRN 07/12/20 [History Confirmed 08/27/20 Last Taken Unknown] diazepam 10 mg PO QDAY 08/25/20 [History Confirmed 08/25/20 Last Taken Unknown] hydrocodone-acetaminophen 1 tab PO QIDP PRN 08/25/20 [History Confirmed 08/25/20 Last Taken Unknown] simvastatin 20 mg PO QDAY 08/25/20 [History Confirmed 08/25/20 Last Taken Unknown] trazodone 100 mg PO QHS 08/25/20 [History Confirmed 08/25/20 Last Taken Unknown] COURSE Hospital Course Hospital course: . Discharge diagnosis: . Time Spent with Patient Time attestation: Total time spent providing and/or coordinating discharge services: EXAM Constitutional Vitals: Temp Pulse Resp BP Pulse Ox 99.3 F H 69 16 141/80 96 08/27/20 06:45 08/27/20 06:45 08/27/20 06:45 08/27/20 06:45 08/27/20 06:45 Discharge Data Data Completed and Pending Labs on day of discharge: Labs from last 24 hours 08/27/20 08/27/20 05:04 05:04 WBC 4.8 RBC 3.08 L Hgb 10.4 L Hct 33.0 L MCV 107.1 H MCH 33.8 MCHC 31.5 RDW 12.9 Plt Count 177 MPV 8.5 Neut % (Auto) 63.8 Lymph % (Auto) 20.0 [place] % (Auto) 11.6 Eos % (Auto) 4.4 Baso % (Auto) 0.2 Lymph # (Auto) 0.95 L [place] # (Auto) 0.55 Eos # (Auto) 0.21 Baso # (Auto) 0.01 Absolute Neutrophils 3.04 Sodium 139 Potassium 3.3 Chloride 103 Carbon Dioxide 26 Anion Gap 10.0 BUN 7 L Creatinine 0.5 L GFR Calculation 98 Glucose 130 H Uric Acid 3.5 Calcium 8.4 L Phosphorus 3.7 Magnesium 1.7 Total Bilirubin 0.2 Direct Bilirubin < 0.2 GGT 20 AST 19 ALT 14 Alkaline Phosphatase 68 Lactate Dehydrogenase 366 H Total Protein 5.2 L Albumin 2.8 L Globulin 2.4 Albumin/Globulin Ratio 1.2 Triglycerides 101 Discharge Plan Patient/Caregiver Discharge Instructions Activity: increase activity as tolerated Diet: Regular Diet Activity Restrictions/Additional Instructions: The knee immobilizer should be worn until she has a follow-up with Dr. Rebolledo. The boot should be worn until she no longer has pain, possibly 4-6 weeks. Continue therapies as tolerated Recommend PCP to gradually taper benzodiazepine/opioids to minimize risk of fall and injuries due to polypharmacy effect Diet interventions Prescriptions: Continued gabapentin 300 mg capsule 600 mg PO TID 30 Days Qty: 180 RF: 3 Adult 50 Plus Probiotic 4 billion cell capsule 4,000 mmu cells PO QDAY RF: 0 Krill Oil (Gibson 3 and 6) 1000-130(40-80) mg capsule 1 cap PO DAILY RF: 0 meclizine 25 mg tablet 25 mg PO PRN PRN (Reason: Dizziness) RF: 0 cyanocobalamin (vitamin B-12) 5,000 mcg capsule 5,000 mcg PO QDAY RF: 0 cholecalciferol (vitamin D3) 50 mcg (2,000 unit) capsule 50 mcg PO QDAY RF: 0 docusate sodium 100 MG capsule 100 mg PO BID RF: 0 duloxetine [Cymbalta] 30 MG capsule,delayed release(DR/EC) 30 mg PO BID RF: 0 tizanidine 4 MG tablet 4 - 8 mg PO TIDP PRN (Reason: Muscle Spasm) RF: 0 modafinil 200 MG tablet 200 mg PO BID Qty: 10 RF: 0 gcgerbj-lrekdxldbo-VDK-caff 1 EACH capsule 1 cap PO Q6HP PRN (Reason: Migraine Headache) Qty: 7 RF: 0 trazodone 50 mg tablet 100 mg PO QHS RF: 0 simvastatin 20 mg tablet 20 mg PO QDAY RF: 0 hydrocodone-acetaminophen 5-325 mg tablet 1 tab PO QIDP PRN (Reason: Pain) RF: 0 diazepam 10 MG tablet 10 mg PO QDAY RF: 0 Follow Up Plan Follow up with: Radha Arce [Primary Care Provider] - Patient Disposition: Xfer SNF Rehab Potential: Fair I certify that the patient requires SNF services: Yes Overall status at discharge: patient is progressing back to baseline Discharge Orders: Discharge Order (Routine); Ordered 08/27/20 Ordered By: Oz GILMAN VTE Deep Vein Thrombosis/Pulmonary Embolism Present on Admission: No
== END 2020-08-27 14:50 | DRG 558 ==
LOC: ED 15:22 → MEDSUR 21:10
PROVIDERS: ADMIT Internal Medicine; ATTEND Internal Medicine

== ENCOUNTER 2024-03-25 19:07 | Inpatient (IN) ==
[2024-03-25] MEDS: KETOROLAC 15 MG/ML VIAL IV ONE (19:45)
[2024-03-25] MEDS: HYDROmorphone 0.5 MG/0.5 ML SYRINGE IV ONE (19:45)
[2024-03-25] MEDS: ACETAMINOPHEN 1,000 MG/100 ML BAG IV ONE (19:45)
[2024-03-25] MEDS: HYDROCODONE/APAP 7.5/325MG TABLET PO ONE (21:38)
[2024-03-25 22:05] LABS: Basophils # (Auto) 0.01 K/mcL (0.00-0.30); Basophils % (Auto) 0.1 % (0.0-2.0); Eosinophils % (Auto) 1.2 % (0.0-7.0); Hematocrit 39.9 % (34.1-44.9); Hemoglobin 12.4 g/dL (11.2-15.7); Lymphocytes # (Auto) 2.05 K/mcL (1.50-4.80); Lymphocytes % (Auto) 24.2 % (15.5-49.0); Mean Corpuscular HGB Conc 31.1 g/dL (31.0-36.0); Mean Platelet Volume 8.2 fL (8.8-12.5); Monocytes # (Auto) 0.49 K/mcL (0.10-0.90); Monocytes % (Auto) 5.8 % (1.0-12.0); Neutrophils % (Auto) 68.6 % (38.0-78.0); Platelet Count 221 K/mcL (140-440); RBC 3.66 M/mcL (3.59-5.38); WBC 8.5 K/mcL (4.5-11.0)
[2024-03-25 22:15] LABS: Prothrombin Time 13.4 sec (11.9-14.5)
[2024-03-25 22:48] LABS: ALT/SGPT 17 U/L (<40); AST/SGOT 30 U/L (<32); Albumin 3.6 gm/dL (3.2-5.2); Albumin/Globulin Ratio 1.3 (1.0-2.3); Alkaline Phosphatase 89 U/L (39-117); Bilirubin,Direct < 0.2 mg/dL (0-0.3); Bilirubin,Total < 0.2 mg/dL (0.1-1.0); Blood Urea Nitrogen 19 mg/dL (8-23); Calcium 9.1 mg/dL (8.6-10.4); Carbon Dioxide 31 mmol/L (22-30); Chloride 103 mmol/L (96-108); Globulin 2.7 gm/dL (2.2-3.7); Glomerular Filtration Rate 45; Glucose 110 mg/dL (70-105); Lactate Dehydrogenase 216 U/L (135-225); Phosphorous 4.2 mg/dL (2.5-4.5); Potassium 4.3 mmol/L (3.3-5.1); Sodium 141 mmol/L (133-145); Triglycerides 184 mg/dL (<150); Uric Acid 6.7 mg/dL (2.5-8.0)
[2024-03-25] MEDS ORDERED: METOCLOPRAMIDE 10 MG/2 ML VIAL IV PRN (23:10)
[2024-03-25] MEDS ORDERED: MAGNESIUM SULFATE 2 GM/50 ML BAG IV PRN (23:10)
[2024-03-25] MEDS ORDERED: IPRATROPIUM/ALBUTEROL 3 ML AMPUL.NEB NEB PRN (23:10)
[2024-03-25] MEDS ORDERED: ONDANSETRON 4 MG/2 ML VIAL IV PRN (23:10)
[2024-03-25] MEDS ORDERED: POLYETHYLENE GLYCOL 3350 17 GM PACKET PO PRN (23:10)
[2024-03-25] MEDS ORDERED: POTASSIUM CHLORIDE 40 MEQ in DEXTROSE 5% IN WATER 500 ML IV PRN (23:10)
[2024-03-25] MEDS ORDERED: POTASSIUM CHLORIDE 20 MEQ TABLET PO PRN ×2 (23:10)
[2024-03-25] MEDS ORDERED: oxyCODONE/APAP 5/325MG TABLET PO PRN (23:10)
[2024-03-26] MEDS: 0.9 % SODIUM CHLORIDE 10 ML SYRINGE IV SCH (00:25)
[2024-03-26] MEDS: morphine 4 MG/ML VIAL IV PRN (07:41)
[2024-03-26] MEDS ORDERED: MECLIZINE 25 MG TABLET PO PRN (08:08)
[2024-03-26] MEDS ORDERED: [UNRECOGNIZED DRUG - OTHER] PO PRN (08:10)
[2024-03-26] MEDS: DOCUSATE SODIUM 100 MG CAPSULE PO SCH (08:26)
[2024-03-26] MEDS: SIMVASTATIN 20 MG TABLET PO SCH (08:26)
[2024-03-26] MEDS: GABAPENTIN 300 MG CAPSULE PO SCH (08:26)
[2024-03-26] MEDS: ENOXAPARIN 40 MG/0.4 ML SYRINGE SQ SCH (08:28)
[2024-03-26] MEDS ORDERED: diphenhydrAMINE 25 MG CAPSULE PO PRN (09:15)
[2024-03-26] MEDS: 0.9 % SODIUM CHLORIDE 1,000 ML IV ONE (09:30)
[2024-03-26] MEDS: guaiFENesin 600 MG TAB.SR.12H PO SCH (09:32)
[2024-03-26] MEDS: MODAFINIL 200 MG TABLET PO SCH (09:43)
[2024-03-26] MEDS: HYDROCODONE/APAP 7.5/325MG TABLET PO PRN (10:16)
[2024-03-26] MEDS: tiZANidine 4 MG TABLET PO PRN (18:37)
[2024-03-26] MEDS: LORATADINE 10 MG TABLET PO PRN (18:38)
[2024-03-26] MEDS ORDERED: TRAZADONE 100 MG PO PRN (18:48)
[2024-03-26] MEDS: MELATONIN 3 MG TABLET PO SCH (20:58)
[2024-03-26] MEDS: traZODone HCL 100 MG TABLET PO PRN (21:02)
[2024-03-27 06:44] LABS: ALT/SGPT 11 U/L (<40); AST/SGOT 18 U/L (<32); Albumin 2.9 gm/dL (3.2-5.2); Albumin/Globulin Ratio 1.5 (1.0-2.3); Alkaline Phosphatase 67 U/L (39-117); Bilirubin,Direct < 0.2 mg/dL (0-0.3); Bilirubin,Total 0.2 mg/dL (0.1-1.0); Blood Urea Nitrogen 23 mg/dL (8-23); Calcium 8.2 mg/dL (8.6-10.4); Carbon Dioxide 28 mmol/L (22-30); Chloride 106 mmol/L (96-108); Glomerular Filtration Rate 45; Glucose 165 mg/dL (70-105); Lactate Dehydrogenase 171 U/L (135-225); Phosphorous 4.9 mg/dL (2.5-4.5); Potassium 4.4 mmol/L (3.3-5.1); Sodium 142 mmol/L (133-145); Triglycerides 147 mg/dL (<150); Uric Acid 5.6 mg/dL (2.5-8.0)
[2024-03-27] MEDS: DIAZEPAM 10 MG TABLET PO PRN (11:21)
[2024-03-27] MEDS: ACETAMINOPHEN 325 MG TABLET PO PRN (12:40)
[2024-03-27] MEDS: DULoxetine 30 MG CAPSULE PO ONE (19:14)
[2024-03-27] MEDS: SENNOSIDES 1 TABLET PO PRN (22:20)
[2024-03-28] MEDS: DULoxetine 30 MG CAPSULE PO SCH (08:13)
[2024-03-28] MEDS: LIDOCAINE 4% TOP PATCH TOPICAL SCH (12:33)
== END 2024-03-29 14:40 | DRG 563 ==
LOC: ED 19:07 → MEDSUR 19:07
PROVIDERS: ADMIT Internal Medicine; ATTEND Internal Medicine

== ENCOUNTER 2024-11-08 10:14 | Inpatient (IN) ==
[2024-11-08] MEDS ORDERED: ONDANSETRON 4 MG/2 ML VIAL IV PRN (12:33)
[2024-11-08 13:28] LABS: Basophils # (Auto) 0.02 K/mcL (0.00-0.30); Basophils % (Auto) 0.3 % (0.0-2.0); Eosinophils # (Auto) 0.23 K/mcL (0.00-0.70); Eosinophils % (Auto) 3.2 % (0.0-7.0); Hematocrit 44.0 % (34.1-44.9); Hemoglobin 13.7 g/dL (11.2-15.7); Lymphocytes # (Auto) 2.41 K/mcL (1.50-4.80); Lymphocytes % (Auto) 33.9 % (15.5-49.0); Mean Corpuscular HGB Conc 31.1 g/dL (31.0-36.0); Monocytes # (Auto) 0.58 K/mcL (0.10-0.90); Monocytes % (Auto) 8.2 % (1.0-12.0); Neutrophils % (Auto) 54.3 % (38.0-78.0); Platelet Count 185 K/mcL (140-440); RBC 4.09 M/mcL (3.59-5.38); WBC 7.1 K/mcL (4.5-11.0)
[2024-11-08 13:40] LABS: INR 0.9 (0.9-1.1); Prothrombin Time 13.1 sec (11.9-14.5)
[2024-11-08] MEDS: tiZANidine 4 MG TABLET PO PRN (14:09)
[2024-11-08] MEDS: 0.9 % SODIUM CHLORIDE 1,000 ML IV SCH (14:17)
[2024-11-08 14:24] LABS: ALT/SGPT 21 U/L (<40); AST/SGOT 23 U/L (<32); Albumin 3.7 gm/dL (3.2-5.2); Albumin/Globulin Ratio 1.5 (1.0-2.3); Alkaline Phosphatase 70 U/L (39-117); Anion Gap 10.0 (8.0-16.0); Bilirubin,Direct < 0.2 mg/dL (0-0.3); Bilirubin,Total 0.2 mg/dL (0.1-1.0); Blood Urea Nitrogen 15 mg/dL (8-23); Calcium 9.3 mg/dL (8.6-10.4); Carbon Dioxide 31 mmol/L (22-30); Chloride 101 mmol/L (96-108); Globulin 2.5 gm/dL (2.2-3.7); Glucose 181 mg/dL (70-105); Phosphorous 3.8 mg/dL (2.5-4.5); Potassium 4.0 mmol/L (3.3-5.1); Sodium 142 mmol/L (133-145); Triglycerides 131 mg/dL (<150); Uric Acid 4.3 mg/dL (2.5-8.0)
[2024-11-08 15:59] LABS: Bilirubin,Urine Negative (Negative); Color,Urine Yellow; Glucose,Urine (UA) Negative (Negative); Ketones,Urine Trace mg/dL (Negative); Leukocyte Esterase,Urine Moderate /uL (Negative); PH,Urine 6.0 (5.0-9.0); Protein,Urine 30 mg/dL (Negative); Specific Gravity,Urine 1.020 (1.000-1.035); Urobilinogen,Urine Normal
[2024-11-08] MEDS ORDERED: NOREPINEPHRINE 250 ML IV PRN (17:00)
[2024-11-08] MEDS ORDERED: NOREPINEPHRINE BITARTRATE 16 MG in 0.9 % SODIUM CHLORIDE 234 ML IV PRN (17:00)
[2024-11-08] MEDS: BISACODYL 5 MG TABLET PO ONE (17:35)
[2024-11-08] MEDS: PEG 3350/NA SULF,BICARB,CL/KCL 4,000 ML ORAL.SOL PO ONE (17:35)
[2024-11-08] MEDS: LACTATED RINGERS 1,000 ML IV ONE (17:36)
[2024-11-08] MEDS: 0.9 % SODIUM CHLORIDE 250 ML IV SCH (17:36)
[2024-11-08 18:00] LABS: Hematocrit 36.3 % (34.1-44.9); Hemoglobin 11.3 g/dL (11.2-15.7)
[2024-11-08 18:23] LABS: ALT/SGPT 16 U/L (<40); AST/SGOT 19 U/L (<32); Albumin 3.2 gm/dL (3.2-5.2); Albumin/Globulin Ratio 1.5 (1.0-2.3); Alkaline Phosphatase 61 U/L (39-117); Anion Gap 9.0 (8.0-16.0); Bilirubin,Direct < 0.2 mg/dL (0-0.3); Bilirubin,Total 0.2 mg/dL (0.1-1.0); Blood Urea Nitrogen 16 mg/dL (8-23); Calcium 8.5 mg/dL (8.6-10.4); Carbon Dioxide 28 mmol/L (22-30); Chloride 104 mmol/L (96-108); Globulin 2.1 gm/dL (2.2-3.7); Glucose 177 mg/dL (70-105); Phosphorous 4.4 mg/dL (2.5-4.5); Potassium 4.0 mmol/L (3.3-5.1); Sodium 141 mmol/L (133-145); Triglycerides 102 mg/dL (<150); Uric Acid 4.2 mg/dL (2.5-8.0)
[2024-11-08] MEDS: 0.9 % SODIUM CHLORIDE 1,000 ML IV ONE (18:26)
[2024-11-08] MEDS: GABAPENTIN 300 MG CAPSULE PO SCH (21:53)
[2024-11-09 06:12] LABS: Basophils # (Auto) 0.02 K/mcL (0.00-0.30); Basophils % (Auto) 0.3 % (0.0-2.0); Eosinophils # (Auto) 0.25 K/mcL (0.00-0.70); Eosinophils % (Auto) 3.5 % (0.0-7.0); Hematocrit 41.3 % (34.1-44.9); Hemoglobin 12.7 g/dL (11.2-15.7); Lymphocytes # (Auto) 2.08 K/mcL (1.50-4.80); Lymphocytes % (Auto) 28.8 % (15.5-49.0); Mean Corpuscular HGB Conc 30.8 g/dL (31.0-36.0); Monocytes # (Auto) 0.49 K/mcL (0.10-0.90); Monocytes % (Auto) 6.8 % (1.0-12.0); Neutrophils % (Auto) 60.5 % (38.0-78.0); Platelet Count 170 K/mcL (140-440); RBC 3.75 M/mcL (3.59-5.38); WBC 7.2 K/mcL (4.5-11.0)
[2024-11-09 06:27] LABS: ALT/SGPT 18 U/L (<40); AST/SGOT 22 U/L (<32); Albumin 3.4 gm/dL (3.2-5.2); Albumin/Globulin Ratio 1.4 (1.0-2.3); Alkaline Phosphatase 73 U/L (39-117); Anion Gap 11.0 (8.0-16.0); Bilirubin,Direct < 0.2 mg/dL (0-0.3); Bilirubin,Total 0.3 mg/dL (0.1-1.0); Blood Urea Nitrogen 12 mg/dL (8-23); Calcium 8.6 mg/dL (8.6-10.4); Carbon Dioxide 27 mmol/L (22-30); Chloride 105 mmol/L (96-108); Globulin 2.5 gm/dL (2.2-3.7); Glucose 157 mg/dL (70-105); Phosphorous 4.0 mg/dL (2.5-4.5); Potassium 4.1 mmol/L (3.3-5.1); Sodium 143 mmol/L (133-145); Triglycerides 121 mg/dL (<150); Uric Acid 4.0 mg/dL (2.5-8.0)
[2024-11-09] MEDS: HYDROcodone/APAP 10/325MG TABLET PO PRN (11:02)
[2024-11-09] MEDS: PEG 3350/NA SULF,BICARB,CL/KCL 4,000 ML ORAL.SOL PO ONE (14:22)
[2024-11-09] MEDS: 0.9 % SODIUM CHLORIDE 10 ML SYRINGE IV SCH (20:40)
[2024-11-10] MEDS: PEG 3350/NA SULF,BICARB,CL/KCL 4,000 ML ORAL.SOL PO ONE (09:17)
[2024-11-10] MEDS ORDERED: BUTALB/ACETAMINOPHEN/CAFFEINE 1 TABLET PO PRN (19:59)
[2024-11-11 06:55] LABS: Anion Gap 12.0 (8.0-16.0); Blood Urea Nitrogen 6 mg/dL (8-23); Calcium 9.3 mg/dL (8.6-10.4); Carbon Dioxide 27 mmol/L (22-30); Chloride 101 mmol/L (96-108); Glucose 143 mg/dL (70-105); Potassium 3.6 mmol/L (3.3-5.1); Sodium 140 mmol/L (133-145)
[2024-11-11] MEDS: 0.9 % SODIUM CHLORIDE 1,000 ML IV SCH (19:57)
[2024-11-12 06:24] LABS: Anion Gap 13.0 (8.0-16.0); Blood Urea Nitrogen 5 mg/dL (8-23); Calcium 9.3 mg/dL (8.6-10.4); Carbon Dioxide 26 mmol/L (22-30); Chloride 102 mmol/L (96-108); Glucose 146 mg/dL (70-105); Potassium 3.6 mmol/L (3.3-5.1); Sodium 141 mmol/L (133-145)
[2024-11-12 15:45] VITALS: TEMP 98.8; O2SAT 96
[2024-11-12] MEDS ORDERED: PROPOFOL 200 MG/20 ML VIAL IV ONE (16:19)
== END 2024-11-12 16:20 | disposition home or self-care (01) | DRG 392 ==
LOC: MEDSUR → ICU 16:50 → MEDSUR 11-11 20:39
PROVIDERS: ADMIT Family Medicine Adult Medicine; ATTEND Family Medicine Adult Medicine